=== PATIENT | female | born 1965 | race Caucasian/White ===

== ENCOUNTER 2019-11-26 08:17 | Outpatient (CLI) | payer OTHER, SELFPAY ==
--- NOTE | ~2019-11-26 | MM_ITS ---
EXAMINATION: MM screening wolf BI w bernardino HISTORY: Screening mammogram TECHNIQUE: Craniocaudal and mediolateral oblique 3-D tomosynthesis images were obtained and synthetic 2-D images were generated. CAD analysis was submitted and interpreted. COMPARISON: 11/22/2016, 08/14/2015, 08/08/2014 bilateral digital screening mammogram examinations BREAST PARENCHYMAL COMPOSITION: There are scattered areas of fibroglandular density.. FINDINGS: There is no evidence of suspicious mass, calcification, or architectural distortion to sugg est malignancy in either breast. There has been no suspicious interval change. IMPRESSION: 1. No mammographic evidence of malignancy. 2. Recommend routine screening mammography in one year. BI-RADS Category 1: Negative Reviewed, dictated and finalized at location A.
--- NOTE | ~2019-11-26 | US_ITS ---
EXAMINATION: US pelvic complete w TV DATE: 11/26/2019 08:54 INDICATION: Postmenopausal bleeding TECHNIQUE: Multiple transabdominal and endovaginal sonographic images of the pelvis were obtained. COMPARISON: None. FINDINGS: The uterus measures 10.7 x 5.2 x 6.5 cm. The endometrial complex measures 25 mm and is hete rogeneous in appearance. The ovaries are not visualized however no adnexal abnormality is seen. A nab othian cyst is noted in the cervix. There is no free fluid in the pelvis. IMPRESSION: 1. Endometrial thickening which may be due to hyperplasia, polyp, or malignancy. Endometrial sampling is recommended. Reviewed, dictated and finalized at location A. IMPRESSION: 1. Endometrial thickening which may be due to hyperplasia, polyp, or malignancy . Endometrial sampling is recommended.
== END 2019-11-26 08:18 | disposition home or self-care (01) ==
LOC: CHSIMG 08:19
PROVIDERS: PCP Internal Medicine; Visit Provider Internal Medicine
DX: Z12.31 Encounter for screening mammogram for malignant neoplasm of breast (principal); N93.8 Other specified abnormal uterine and vaginal bleeding
CPT/HCPCS: 76830; 76856; 77063; 77067

== ENCOUNTER 2019-11-26 22:12 | Emergency (ER) | payer OTHER, SELFPAY ==
[2019-11-26 22:49] VITALS: BP 154/85; PULSE 56; RESP 20; TEMP 36.6; O2SAT 96
--- NOTE | 2019-11-26 22:57 | ED.ALLEREA ---
HPI - Allergic Reaction General Chief complaint: Dental/Oral Stated complaint: 53YO female w/ swelling in lower lip after she ate at [employer] earlier today. Admits it was something she ate after which the swelling started. Related Data Home Medications Medication Instructions Recorded Confirmed duloxetine 20 mg PO DAILY 11/26/19 11/26/19 levothyroxine 125 mcg PO DAILY 11/26/19 11/26/19 Allergies Allergy/AdvReac Type Severity Reaction Status Date / Time Sulfa (Sulfonamide Allergy Unknown Unknown Verified 11/26/19 23:03 Antibiotics) Review of Systems Review of Systems: All systems reviewed & are unremarkable except as noted in HPI and below Constitutional: Constitutional: Reports as per HPI, Reports no additional constitutional complaints, Denies chills, Denies fever(s) and Denies weakness ENT: Reports system reviewed and no additional complaints, except as documented Cardiovascular: Cardiovascular: Reports as per HPI and Reports no additional cardiovascular complaints Respiratory: Respiratory: Reports as per HPI and Reports no additional respiratory complaints Gastrointestinal: Gastrointestinal: Reports as per HPI and Reports no additional gastrointestinal complaints Genitourinary: Genitourinary: Reports no additional female genitourinary complaints and Reports as per HPI Musculoskeletal: Musculoskeletal: Reports no additional musculoskeletal complaints and Reports as per HPI Integumentary/Breasts: Skin/Breast: Reports system reviewed and no additional complaints, except as docu and Reports as per HPI Comments: Lower lip swelling on left lateral aspect Neurologic: Reports system reviewed and no additional complaints, except as documented, Denies confusion, Denies dizziness, Denies headache(s), Denies focal weakness and Denies weakness Psychiatric: Psychiatric: Reports no additional psychiatric complaints Endocrine: Endocrine: Reports no additional endocrine complaints Hematologic/Lymphatic: Hematologic/Lymphatic: Reports no additional hematologic/lymphatic complaints Allergic/Immunologic: Allergic/Immunologic: Reports lip swelling, Denies throat swelling, Denies tongue swelling and Denies wheezing [facility] Past Medical History Medical History (Updated 11/26/19 @ 23:07 by Ousmane Rice MD) Depression Hypothyroidism Exam Const: General: healthy appearing, no acute distress and alert Orientation/consciousness: patient oriented x3 and No confusion Limitations: No altered mental status HENMT: General nose exam: Normal external nose present and Normal nares present Face and sinus: sinuses nontender Mouth: No lip normal and Yes moist mucous membranes Other: Lower lip swelling over left lateral aspect Eyes: Pupils: Equal, round and reactive pupils present Neck: Neck: normal visual inspection Chest: Chest palpation & inspection: normal inspection of the chest Resp: Effort & Inspection: normal respiratory effort Auscultation: clear to auscultation bilaterally Cardio: Rate: regular rate Rhythm: regular rhythm GI: Inspection: non-distended GI Palp: Yes Soft to palpation and No Tenderness to palpation present (GI) : General: Yes no CVA tenderness Skin: General skin exam: normal color Neuro: General: patient oriented x3, moves all extremities, no focal motor deficits and CN's II-XI intact bilaterally Extrem: General: normal to inspection Psych: Affect: normal affect Course Course Emergency Course: Food allergy. Prednisone PO in ED. D/C home w/ prednisone x 3 days Vital Signs Vital signs: Vital Signs Temperature 97.8 F 11/26/19 22:49 Pulse Rate 56 L 11/26/19 22:49 Respiratory Rate 11/26/19 22:49 Blood Pressure 154/85 H 11/26/19 22:49 Pulse Oximetry 96 11/26/19 22:49 Temperature 97.8 F 11/26/19 22:49 Pulse Rate 56 L 11/26/19 22:49 Respiratory Rate 11/26/19 22:49 Blood Pressure 154/85 H 11/26/19 22:49 Pulse Oximetry 96 11/26/19 22:49
[2019-11-26] MEDS: predniSONE 20 MG TABLET 80 MG PO (23:05)
[2019-11-26 23:09] VITALS: BP 145/78; PULSE 70; RESP 18; TEMP 36.6; O2SAT 100
[2019-11-26 23:50] VITALS: BP 144/85; PULSE 71; RESP 18; TEMP 36.6; O2SAT 98
== END 2019-11-26 23:54 | disposition home or self-care (01) ==
PROVIDERS: Emergency Provider Family Medicine; PCP Internal Medicine
DX: T78.40XA Allergy, unspecified, initial encounter (principal)
CPT/HCPCS: 99282; 99283; J7512

== ENCOUNTER 2020-10-03 16:43 | Outpatient (CLI) | payer OTHER, SELFPAY ==
--- NOTE | ~2020-10-03 | XR_ITS ---
EXAMINATION: XR chest 2V DATE: 10/03/2020 17:05 INDICATION: Weight gain. Chronic obstructive pulmonary disease. TECHNIQUE: Frontal and lateral views of the chest were obtained. COMPARISON: Chest 2 views 08/29/2012 FINDINGS: The chest demonstrates clear lungs without pneumonia, pleural effusion, or pneumothorax. Th e heart size is normal. There is mild chronic anterior wedging of T12. IMPRESSION: 1. No acute cardiopulmonary disease. Reviewed, dictated and finalized at location A.
--- NOTE | ~2020-10-03 | XR_ITS ---
EXAMINATION: XR lumbar spine 2-3V DATE: 10/03/2020 17:05 INDICATION: Low back pain. TECHNIQUE: 3 views of lumbar spine were obtained. COMPARISON: Lumbar spine radiograph 11/22/2016 FINDINGS: There is 8 degrees dextrocurvature of lumbar spine. There is mild chronic anterior wedging of T12 vertebral body. There is mildly decreased disc height at L4-L5. There are endplate osteophytes at most levels. There is severe facet joint osteoarthritis in lower lumbar spine. IMPRESSION: 1. Mild lumbar spondylosis, stable from 11/22/2016. Reviewed, dictated and finalized at location A.
== END 2020-10-03 16:44 | disposition home or self-care (01) ==
PROVIDERS: PCP Internal Medicine; Visit Provider Internal Medicine
DX: N95.0 Postmenopausal bleeding (principal); E03.9 Hypothyroidism, unspecified; R63.5 Abnormal weight gain
CPT/HCPCS: 71046; 72100

== ENCOUNTER 2020-10-05 10:13 | Outpatient (CLI) | payer OTHER, SELFPAY ==
--- NOTE | ~2020-10-05 | US_ITS ---
EXAMINATION: US pelvic complete DATE: 10/05/2020 10:31 INDICATION: Postmenopausal bleeding TECHNIQUE: Multiple transabdominal and endovaginal sonographic images of the pelvis were obtained. COMPARISON: 11/26/2019 FINDINGS: The uterus measures 11.6 x 6.0 x 6.1 cm. The endometrial complex measures 3.2 cm. The ovari es are not visualized however no adnexal abnormality is seen. There is no free fluid in the pelvis. IMPRESSION: 1. Endometrial thickening which may be due to hyperplasia, polyp, or malignancy. Endometrial sampling is recommended. Reviewed, dictated and finalized at location B. IMPRESSION: 1. Endometrial thickening which may be due to hyperplasia, polyp, or malignancy . Endometrial sampling is recommended.
== END 2020-10-05 10:14 | disposition home or self-care (01) ==
LOC: CHSIMG 10:15
PROVIDERS: PCP Internal Medicine; Visit Provider Internal Medicine
DX: N95.0 Postmenopausal bleeding (principal)
CPT/HCPCS: 76856

== ENCOUNTER 2021-05-22 11:51 | Outpatient (CLI) | payer OTHER, SELFPAY ==
--- NOTE | ~2021-05-22 | MM_ITS ---
EXAMINATION: MM screening wolf BI w bernardino HISTORY: Screening TECHNIQUE: Craniocaudal and mediolateral oblique 3-D tomosynthesis images were obtained and synthetic 2-D images were generated. CAD analysis was submitted and interpreted. COMPARISON: Comparison to multiple prior studies sequentially, with oldest reviewed study dated 07/30. BREAST PARENCHYMAL COMPOSITION: There are scattered areas of fibroglandular density. FINDINGS: There is no evidence of suspicious mass, calcification, or architectural distortion to sugg est malignancy in either breast. There has been no suspicious interval change. IMPRESSION: 1. No mammographic evidence of malignancy. 2. Recommend routine screening mammography in one year. BI-RADS Category 1: Negative Reviewed, dictated and finalized at location A. UITRY NEGATIVE INSPECTOR
--- NOTE | ~2021-05-22 | XR_ITS ---
EXAMINATION: XR lumbar spine 2-3V DATE: 05/22/2021 12:42 INDICATION: Generalized back pain radiating to the hips TECHNIQUE: Anteroposterior and lateral views of the lumbar spine, and cone-down lateral view of the l umbosacral junction were obtained. COMPARISON: 10/03/2020 FINDINGS: 5 degrees lumbar dextrocurvature. 4 mm anterolisthesis L4 on L5. Lumbar vertebral body heights are no rmal. Mild disc height loss at L4-L5 and at L1-L2 and multiple levels in the visualized lower thoraci c spine. Bilateral severe lower lumbar facet osteoarthritis. Atherosclerotic aorta. IMPRESSION: 1. Increased now 4 mm anterolisthesis L4 on L5, otherwise unchanged. Otherwise unchanged mild lumbar spondylosis. Reviewed, dictated and finalized at location A. OR REPORT DEVELOPER
[2021-05-22 12:10] LABS: Basophils Absolute Auto 0.06 K/mm3 (0.00-0.10); Eosinophils Absolute Auto 0.16 K/mm3 (0.02-0.50); Eosinophils Percent Auto 2.6 % (1.0-6.0); Hematocrit 40.4 % (35.0-49.0); Hemoglobin 12.7 g/dL (12.0-15.0); Immature Granulocyte Absolute 0.04 K/mm3 (0.00-0.00); Immature Granulocyte Percent A 0.6 % (0.0-0.0); Lymphocytes Absolute Auto 1.39 K/mm3 (1.10-4.50); Lymphocytes Percent Auto 22.3 % (18.0-42.0); Mean Corpuscular HGB Conc 31.4 g/dL (32.0-36.0); Mean Corpuscular Hemoglobin 32.6 pg (27.0-31.0); Mean Corpuscular Volume 103.6 fL (78.0-102.0); Mean Platelet Volume 9.3 fl (9.2-11.8); Monocytes Absolute Auto 0.36 K/mm3 (0.10-0.90); Monocytes Percent Auto 5.8 % (2.0-11.0); Neutrophils Absolute Auto 4.2 K/mm3 (1.7-7.2); Neutrophils Percent Auto 67.7 % (50.0-70.0); Platelet Count Result 250 K/mm3 (150-420); White Blood Count 6.2 K/mm3 (4.8-10.8)
[2021-05-22 12:11] LABS: Add Urine Microscopic? YES; Appearance Urine Clear (Clear); Bilirubin Urine Negative (Negative); Blood Urine 1+ (Negative); Color Urine Light Yellow (Yellow); Glucose Urine UA Negative (Negative); Ketones Urine Negative (Negative); Leukocyte Esterase Ur 1+ (Negative); Nitrate Urine Positive (Negative); Protein Urine Negative (Negative); Specific Grav Ur 1.025 (1.010-1.020); Urobilinogen Urine 0.2 mg/dL (0.2-1.0)
[2021-05-22 12:15] LABS: Squamous Epithelial Cell Urine Few /hpf (Few)
[2021-05-22 12:16] LABS: Bacteria Urine 4+ /hpf
[2021-05-22 13:03] LABS: Alanine Aminotransferase 28 U/L (14-59); Albumin Level 4.1 g/dL (3.4-5.0); Alkaline Phosphatase 91 U/L (46-116); Anion Gap 8 mmol/L (8-16); Aspartate Amino Transferase 20 U/L (15-37); Bilirubin,Total 0.5 mg/dL (0.00-1.00); Blood Urea Nitrogen 16 mg/dL (7-18); CRP 1.3 mg/dL (0.0-0.9); Calcium 8.5 mg/dL (8.5-10.1); Carbon Dioxide 34 mmol/L (21-32); Chloride 101 mmol/L (98-108); Creatine Kinase 300 U/L (26-192); Estimated Glomerular Filt Rate 49; Glucose 97 mg/dL (70-99); NT Pro B Type Natriuretic Pept 41 pg/mL (0-125); Osmolality Calculated 297 mOsm/kg (285-295); Potassium 4.1 mmol/L (3.5-5.1); Sodium 143 mmol/L (136-145); Thyroid Stimulating Hormone 93.49 uIU/mL (0.36-3.74); Total Protein 8.1 g/dL (6.4-8.2)
[2021-05-26 07:32] LABS: Aldolase 4.9 U/L (<=8.1)
== END 2021-05-22 11:52 | disposition home or self-care (01) ==
PROVIDERS: PCP Internal Medicine; Visit Provider Internal Medicine
DX: R53.1 Weakness (principal); R60.9 Edema, unspecified; E03.9 Hypothyroidism, unspecified; M54.9 Dorsalgia, unspecified; Z12.31 Encounter for screening mammogram for malignant neoplasm of breast
CPT/HCPCS: 36415; 72100; 77063; 77067; 80053; 81001; 82085; 82550; 83880; 84443; 85025; 86140

== ENCOUNTER 2021-05-28 14:31 | Outpatient (RCR) | payer OTHER, SELFPAY ==
--- NOTE | 2021-05-28 15:49 | PTOPEVAL ---
Thank you for referring Gentry Asencio to [facility].? The patient is scheduled to be seen for therapy? ____x/week for ___ weeks. Please review, sign, date and return this plan of care YENNY. I agree with and certify that the following plan of care is medically necessary. Referring Physician Date Admitting Provider: Attending Provider: Ortega Reeves MD Referring Provider: *PT Outpatient Evaluation Start: 05/28/21 14:31 Freq: Status: Active Protocol: Document 05/28/21 14:33 ACR (Rec: 05/28/21 15:44 ACR [id number]) Therapy Assessment Status Assessment Status Assessment Status Evaluation Outpatient Past Medical History Musculoskeletal History Hx Fibromyalgia Yes Endocrine History Hx Hypothyroidism Yes Reproductive History Hx Post Menopausal Yes Other History Hx Other Surgeries Yes: vaginal lesion removal Evaluation Information Problem Diagnosis low back pain Onset 05/23/21 Subjective Information Patient states that she went Query Text:As Reported By Patient/ to her MD recently and was Family told she has a lot of arthritis. She states that she also has a hernia that she was recently diagnosed with. Patient states that she has difficulty with walking for a period of time (more than a few blocks), standing for a period of time, getting up out of bed. Patient states that the pain is worst in the morning. She states that leaning forward makes her back feel better. She states that believes the hernia is putting a lot of excess weight on the back. Patient states that her goal for therapy is to decrease pain in the lower back. Pain Assessment Timing of Pain Assessment Timing of Pain Assessment Assessment Pain Scale Pain Scale Used Numeric (1 - 10) Self Report Pain Assessment Lower Back Reported Pain Level 3 Greatest Pain Intensity 10 Pain Score Pain Score 3: Self Report Interventions Used Interventions Used By Clinicians Activity or ADL's,Electrical Stimulation,Exercise,Heat Cervical and Lumbar ROM Lumbar ROM Lumbar Flexion Active [place] Query Text:Hands to: Lumb
--- NOTE | 2021-09-10 14:49 | PCPTNOTE ---
Mrs. Asencio attended a total of 11 treatment sessions from 05/28/21 to 06/28/21. She has failed to return to the clinic or contact the clinic. She will be discharged from our care at this time.
== END 2021-06-28 23:59 | disposition home or self-care (01) ==
LOC: CHSPT 14:31
PROVIDERS: PCP Internal Medicine; Visit Provider Internal Medicine
DX: M54.9 Dorsalgia, unspecified (principal)
CPT/HCPCS: 97014; 97110; 97161; G0283

== ENCOUNTER 2022-05-12 00:44 | Emergency (ER) | payer OTHER, SELFPAY ==
[2022-05-12 00:45] VITALS: BP 143/88; PULSE 85; RESP 18; TEMP 37; O2SAT 99
--- NOTE | 2022-05-12 00:46 | ED.FEMALEGU ---
HPI - Female Genitourinary General Chief complaint: Urogenital-Female Stated complaint: Urogenital Time Seen by Provider: 05/12/22 00:46 Source: patient Mode of arrival: ambulatory Limitations: no limitations History of Present Illness HPI Narrative: 56-year-old female with a history of obesity, depression, endometrial cancer status post hysterectomy last year, hypothyroidism, fecal incontinence presents with a 1 month history of -- Erythema with burning and itching of the vulva/ Vagina -- Dysuria without any hematuria. no fever or chills. Patient is menopausal and has not been sexually active for many years. MD elicited complaint: UTI Pertinent past history: urinary incontinence Onset (ago): month(s) ( Symptoms started 1 month ago.) Location of symptoms: external genitalia, perineum and vaginal Severity: mild Female Urogenital Radiation: Non-Radiating Vaginal discharge: none Vaginal bleeding: none Urinary symptoms: Dysuria Exacerbating factors: none Relieving factors: none Associated symptoms: denies other symptoms Treatment prior to arrival: none Patient : No Related Data : 8 Para: 5 Home Medications Medication Instructions Recorded Confirmed duloxetine 20 mg capsule,delayed 20 mg PO DAILY 11/26/19 05/12/22 release levothyroxine 125 mcg tablet 125 mcg PO DAILY 11/26/19 05/12/22 Allergies Allergy/AdvReac Type Severity Reaction Status Date / Time Sulfa (Sulfonamide Allergy Unknown Unknown Verified 10/13/20 12:45 Antibiotics) Review of Systems Review of Systems: All systems reviewed & are unremarkable except as noted in HPI and below Constitutional: Constitutional: Reports as per HPI and Reports no additional constitutional complaints Eyes: Eyes: Reports as per HPI and Reports no additional eye complaints ENT: Reports system reviewed and no additional complaints, except as documented and Reports as per HPI Cardiovascular: Cardiovascular: Reports as per HPI and Reports no additional cardiovascular complaints Respiratory: Respiratory: Reports as per HPI and Reports no additional respiratory complaints Gastrointestinal: Gastrointestinal: Reports as per HPI and Reports no additional gastrointestinal complaints Genitourinary: Genitourinary: Reports no additional female genitourinary complaints, Reports as per HPI, Reports dysuria and Reports urinary incontinence Musculoskeletal: Musculoskeletal: Reports no additional musculoskeletal complaints and Reports as per HPI Integumentary/Breasts: Skin/Breast: Reports system reviewed and no additional complaints, except as docu and Reports as per HPI Neurologic: Reports system reviewed and no additional complaints, except as documented and Reports as per HPI Psychiatric: Psychiatric: Reports no additional psychiatric complaints and Reports as per HPI Endocrine: Endocrine: Reports no additional endocrine complaints and Reports as per HPI Hematologic/Lymphatic: Hematologic/Lymphatic: Reports no additional hematologic/lymphatic complaints and Reports as per HPI Allergic/Immunologic: Allergic/Immunologic: Reports no additional allergic/immunologic complaints and Reports as per HPI PMFSH Past Medical History Medical History Depression Endometrial cancer 10/06/20 Hypothyroidism Surgical History Surgical History Hx of vaginal surgery Family History Family History Mother Dementia Father COPD (chronic obstructive pulmonary disease) Social History Social History Smoking status: Former smoker Alcohol intake: never Substance use: never Exam Const: Nutritional Appearance: obese Orientation/consciousness: patient oriented x3 Limitations: no limitations HENMT: Head: normal to inspection Ears: seasoner
--- NOTE | 2022-05-12 01:05 | PC.NURSE ---
patient return from bathroom states I spilled my urine so I don't have a sample for you
[2022-05-12 01:45] LABS: Wet Prep Fungus (KOH) Source Vaginal (Negative)
[2022-05-12 01:46] LABS: KOH Fungus None Seen (None Seen)
[2022-05-12 02:02] LABS: Add Urine Microscopic? YES; Bilirubin Urine Negative (Negative); Blood Urine 1+ (Negative); Color Urine Light Yellow (Yellow); Glucose Urine UA Negative (Negative); Ketones Urine Negative (Negative); Leukocyte Esterase Ur 1+ LEU/UL (Negative); Nitrate Urine Positive (Negative); Protein Urine Negative (Negative); Specific Grav Ur >= 1.030 (1.010-1.020); Urobilinogen Urine 0.2 mg/dL (0.2-1.0); pH Urine 5.5 (5.0-8.0)
[2022-05-12 02:14] LABS: Appearance Urine Cloudy (Clear); Bacteria Urine 4+ /hpf; Squamous Epithelial Cell Urine Many /hpf (Few)
[2022-05-12 02:27] VITALS: BP 138/89; PULSE 90; RESP 20; TEMP 36.6; O2SAT 96
--- NOTE | 2022-05-12 02:31 | PC.NURSE ---
DURING DISCHARGE AND REVIEW THE NEED TO GET MEDICINE IN AM AND START,PT SAID OH I DON'T KNOW IT MAY BE FRIDAY BEFORE I GET IT. EXPLAIN NEED TO FOLLOW UP WITH FUDGER SHE SAID I DON'T HAVE TIME IF IT CONTINUES I WILL JUST COME BACK TO ER
--- NOTE | 2022-05-14 12:52 | PC.NURSE ---
FINAL URINE CULTURE RESULTS: GREATER THAN 100,000CFU/ML OF E COLI. PT WAS PLACED ON CIPROFLOXACIN, WHICH IS SUSCEPTIBLE PER C&S. NO FURTHER ACTION NEEDED PER DR HENAO.
== END 2022-05-12 02:33 | disposition home or self-care (01) ==
PROVIDERS: Emergency Provider Internal Medicine Critical Care Medicine; PCP Internal Medicine
DX: B37.31 Acute candidiasis of vulva and vagina (principal); N39.0 Urinary tract infection, site not specified; E03.9 Hypothyroidism, unspecified; F32.A Depression, unspecified; Z87.891 Personal history of nicotine dependence
CPT/HCPCS: 81001; 87077; 87086; 87088; 87186; 87210; 99283

== ENCOUNTER 2023-04-11 22:21 | Emergency (ER) | payer OTHER, SELFPAY ==
--- NOTE | ~2023-04-11 | XR_ITS ---
EXAMINATION: XR ankle LT min 3V DATE: 04/11/2023 22:31 INDICATION: Left ankle injury and pain. TECHNIQUE: 3 views of left ankle were obtained. COMPARISON: None. FINDINGS: There is an oblique fracture of distal fibula with medial aspect of the fracture line 13 mm proximal to the level of the tibial plafond. The distal fracture fragment demonstrates 2 mm posterol ateral displacement. There is mild widening of the medial ankle mortise. There is ankle soft tissue s welling. IMPRESSION: 1. Oblique fracture of distal fibula. 2. Mild widening of the medial ankle mortise suspicious for deltoid ligament sprain. Reviewed, dictated and finalized at location E. ER CLERK IMPRESSION: 1. Oblique fracture of distal fibula. 2. Mild widening of the medial ankle mortise suspicious for deltoid ligament sp rain.
--- NOTE | ~2023-04-11 | XR_ITS ---
EXAMINATION: XR ankle LT 2V DATE: 04/11/2023 23:10 INDICATION: Distal left fibular fracture status post reduction. TECHNIQUE: 2 views of left ankle were obtained. COMPARISON: Left ankle radiographs at 10:31 PM FINDINGS: There is an oblique fracture of distal fibula. The distal fracture fragment demonstrates 1 mm posterolateral displacement. Joint spaces are normal. There is ankle soft tissue swelling. IMPRESSION: 1. Oblique fracture of distal fibula. Reviewed, dictated and finalized at location E. RT/EXPORT AGENT
[2023-04-11 22:21] VITALS: BP 177/91; PULSE 95; RESP 20; TEMP 36.2; O2SAT 96
--- NOTE | 2023-04-11 22:30 | ED.LOWEXIN ---
HPI - Extremity Injury (Lower) General Chief Complaint: Extremity Injury, Lower Stated Complaint: lower extremity injury Time Seen by Provider: 04/11/23 22:22 Source: patient Mode of arrival: ambulatory Limitations: no limitations History of Present Illness HPI Narrative: patient is a 57-year-old female with a fall at the local [employer] and slipped on her left ankle. She has pain in the left ankle. More so on the outer side. No other injuries. No head or neck injuries. complaint: ankle injury ( Left) Onset (ago): minute(s) (30) Injury: Left: ankle ( left) Type of Injury: eversion Place: street/outdoors Severity: moderate Severity scale (1-10): 5 Relieving factors: immobilization Exacerbating factors: movement Context: fall, direct blow and walking Associated symptoms: swelling, tingling, able to partially bear weight and ambulatory Other symptoms: none Related Data Home Medications Medication Instructions Recorded Confirmed duloxetine 20 mg capsule,delayed 20 mg PO DAILY 11/26/19 04/11/23 release (Cymbalta) levothyroxine 125 mcg tablet 125 mcg PO DAILY 11/26/19 04/11/23 (Synthroid) Allergies Allergy/AdvReac Type Severity Reaction Status Date / Time Sulfa (Sulfonamide Allergy Unknown Rash Verified 04/11/23 22:27 Antibiotics) Review of Systems Review of Systems: All systems reviewed & are unremarkable except as noted in HPI and below Constitutional: Constitutional: Reports no additional constitutional complaints Eyes: Eyes: Reports no additional eye complaints ENT: Reports system reviewed and no additional complaints, except as documented Cardiovascular: Cardiovascular: Reports no additional cardiovascular complaints Respiratory: Respiratory: Reports no additional respiratory complaints Gastrointestinal: Gastrointestinal: Reports no additional gastrointestinal complaints Genitourinary: Genitourinary: Reports no additional female genitourinary complaints Musculoskeletal: Musculoskeletal: Reports no additional musculoskeletal complaints Integumentary/Breasts: Skin/Breast: Reports system reviewed and no additional complaints, except as docu Neurologic: Reports system reviewed and no additional complaints, except as documented Psychiatric: Psychiatric: Reports no additional psychiatric complaints Endocrine: Endocrine: Reports no additional endocrine complaints Hematologic/Lymphatic: Hematologic/Lymphatic: Reports no additional hematologic/lymphatic complaints Allergic/Immunologic: Allergic/Immunologic: Reports no additional allergic/immunologic complaints PMFSH Past Medical History Medical History Depression Endometrial cancer 10/06/20 Hypothyroidism Surgical History Surgical History Hx of vaginal surgery Family History Family History Mother Dementia Father COPD (chronic obstructive pulmonary disease) Social History Social History Smoking status: Former smoker Alcohol intake: never Substance use: never Exam Const: General: healthy appearing Nutritional Appearance: well nourished Orientation/consciousness: patient oriented x3 HENMT: Head: normal to inspection Ears: external ears normal Face/Nose/Sinus: Normal external nose present Eyes: Conjunctivae: conjunctivae normal Pupils: Equal, round and reactive pupils present EOM: EOMs intact bilaterally Neck: Neck: normal visual inspection Chest: Chest palpation & inspection: normal inspection of the chest Resp: Effort & Inspection: normal respiratory effort and not labored Auscultation: clear to auscultation bilaterally and no crackles Cardio: Rate: regular rate Rhythm: regular rhythm Heart sounds: no murmurs GI: Inspection: non-distended GI Palp: Yes Soft to palpation, No Te
[2023-04-11] MEDS: KETOROLAC (*BKC) 60 MG/2 ML VIAL IM (23:15)
[2023-04-11 23:22] VITALS: BP 176/90
== END 2023-04-11 23:50 | disposition home or self-care (01) ==
PROVIDERS: Emergency Provider Emergency Medicine; PCP Internal Medicine
DX: S82.432A Displaced oblique fracture of shaft of left fibula, initial encounter for closed fracture (principal); S93.402A Sprain of unspecified ligament of left ankle, initial encounter; E03.9 Hypothyroidism, unspecified; Z87.891 Personal history of nicotine dependence; Z79.899 Other long term (current) drug therapy; W01.0XXA Fall on same level from slipping, tripping and stumbling without subsequent striking against object, initial encounter
CPT/HCPCS: 29515; 73600; 73610; 96372; 99284; J1885

== ENCOUNTER 2023-05-05 09:23 | Outpatient (CLI) | payer OTHER, SELFPAY ==
--- NOTE | ~2023-05-05 | XR_ITS ---
Left ankle Technique: AP, oblique, and lateral views were obtained. Clinical History: Pain Findings: There is an acute, oblique, minimally fracture the distal fibular shaft. No other fracture or dislocation seen. Ankle mortise and other visualized joint spaces are preserved. Soft tissues are otherwise unremarkable. Impression: Acute, oblique, minimally displaced fracture the distal fibular shaft. Reviewed, dictated and finalized at location . MIZATION ANALYST Impression: Acute, oblique, minimally displaced fracture the distal fibular shaft.
== END 2023-05-05 09:24 | disposition home or self-care (01) ==
PROVIDERS: PCP Internal Medicine; Visit Provider Orthopaedic Surgery
DX: S82.432A Displaced oblique fracture of shaft of left fibula, initial encounter for closed fracture (principal); M25.572 Pain in left ankle and joints of left foot
CPT/HCPCS: 73610

== ENCOUNTER 2023-06-02 08:44 | Outpatient (CLI) | payer OTHER, SELFPAY ==
--- NOTE | ~2023-06-02 | XR_ITS ---
Left ankle Technique: AP, oblique, and lateral views were obtained. Clinical History: Fracture follow-up COMPARISON: 05/05/2023 Findings: Routine partial interval healing of oblique fracture the distal fibula present, with some c allus formation present. Fracture line still visible as a discrete lucency. Alignment is unchanged.. Ankle mortise and other visualized joint spaces are preserved. Soft tissues are otherwise unremarkab le. Impression: Routine interval partial healing of oblique fracture of the distal fibula. Reviewed, dictated and finalized at location M. RITY SYSTEM ENGINEER Impression: Routine interval partial healing of oblique fracture of the distal fibula.
== END 2023-06-02 08:45 | disposition home or self-care (01) ==
LOC: CHSIMG 08:46
PROVIDERS: PCP Internal Medicine; Visit Provider Orthopaedic Surgery
DX: M25.572 Pain in left ankle and joints of left foot (principal); S82.832A Other fracture of upper and lower end of left fibula, initial encounter for closed fracture
CPT/HCPCS: 73610

== ENCOUNTER 2023-09-15 13:45 | Outpatient (CLI) | payer OTHER, SELFPAY ==
--- NOTE | ~2023-09-15 | MM_ITS ---
EXAMINATION: MM screening wolf BI w bernardino HISTORY: Screening TECHNIQUE: Craniocaudal and mediolateral oblique 3-D tomosynthesis images were obtained and synthetic 2-D images were generated. CAD analysis was submitted and interpreted. COMPARISON: Comparison to multiple prior studies sequentially, with oldest reviewed study dated 07/2014. BREAST PARENCHYMAL COMPOSITION: Not dense: There are scattered areas of fibroglandular density. FINDINGS: There is no evidence of suspicious mass, calcification, or architectural distortion to sugg est malignancy in either breast. There has been no suspicious interval change. IMPRESSION: 1. No mammographic evidence of malignancy. 2. Recommend routine screening mammography in one year. BI-RADS Category 1: Negative Reviewed, dictated and finalized at location B.
--- NOTE | ~2023-09-15 | DEXA_ITS ---
? Bone Density Report? Name:? CHERYL COMER Patient ID:??? [id number] Age:? 57 Sex:? Female Ethnicity:? White Date of : 1965 Indication: postmenopausal; screening for osteoporosis; height loss; prior fracture; cancer; hysterectomy; Referring Provider: Ortega Reeves Study: Bone densitometry was performed. Exam Date: September 15, 2023 Accession number: [id number] Bone Density: Region? BMD??? T-score? Z-score?? Classification AP Spine(L1-L4)? 0.858?? -1.7? -0.3? Osteopenia Femoral Neck (Left)? 0.773?? -0.7? 0.6? Normal Total Hip (Left)? 0.905? ?-0.3? 0.6? Normal Femoral Neck (Right)? 0.817?? -0.3? 1.0? Normal Total Hip (Right)? 0.940??? 0.0? 0.9? Normal Femoral Neck Mean? 0.795?? -0.5? 0.8? Normal Total Hip Mean? 0.923?? -0.2? 0.8?Normal World Health Organization criteria for BMD impression classify patients as: Normal (T-score at or above -1.0), Osteopenia (T-score between -1.0 and -2.5), or Osteoporosis (T-score at or below -2.5). 10-year Fracture Risk(1): Major Osteoporotic Fracture? 9.4% Hip Fracture? 0.3% Reported Risk Factors: [place] (), Neck BMD=0.773, BMI=50.5, previous fracture (1) FRAX? Version 3.08. Fracture probability calculated for an untreated patient. Fracture probability may be lower if the patient has received treatment. Clinical Information Provided by Patient: Has had a low trauma fracture Has the following medical conditions: Cancer, Hysterectomy Patient maximum height was 62 Menopause Age: 48 No regular weight bearing exercise Drinks caffeinated beverages Onset of menses at age 10 Number of children 5 Impression: The patient has low bone mass, based on the Total Spine T-score. The patient has risk factors, including: previous fracture. Discussion: BONE DENSITY IS LOW AT ONE OR MORE SKELETAL SITES. This patient's lowest T-score is low at one or more skeletal sites.? It meets the World Health Organization's (WHO) criteria for ?low bone mass?? (T-score between -1.0 and -2.5).? The patient's 10-year risk of fracture as calculated by FRAX is less than the threshold where pharmacological therapy is recommended by the National Osteoporosis Foundation (NOF).? However, all treatment decisions require clinical judgment and consideration of individual patient factors, including patient preferences, comorbidities, previous drug use, risk factors not captured in the FRAX model (e.g., frailty, falls, vitamin D deficiency, increased bone turnover, interval significant decline in bone density) and possible under or overestimation of fracture risk by FRAX. The patient should follow a healthfu
== END 2023-09-15 13:46 | disposition home or self-care (01) ==
LOC: CHSIMG 13:48
PROVIDERS: PCP Internal Medicine; Visit Provider Internal Medicine
DX: Z12.31 Encounter for screening mammogram for malignant neoplasm of breast (principal); Z78.0 Asymptomatic menopausal state; M85.88 Other specified disorders of bone density and structure, other site
CPT/HCPCS: 77063; 77067; 77080

== ENCOUNTER 2023-09-23 09:47 | Outpatient (CLI) | payer OTHER, SELFPAY ==
--- NOTE | ~2023-09-23 | CT_ITS ---
CT abdomen pelvis w con Ordering provider: Ortega Reeves MD History: 57 years Female with . overactive bladder, RT flank pain, abdominal swelling . Comparison: August 02, 2014 Technique: CT abdomen and pelvis with IV and without oral contrast. Radiation reduction technique uti lized. The DLP is 1320.74 mGy. Findings: VISUALIZED LOWER CHEST: Tiny nodule in the right middle lobe measuring 4 mm. Blood is slightly change d from previous examination. 1 year follow-up advised. UPPER ABDOMINAL ORGANS: Liver: Fat infiltration. Hepatomegaly. Hypodensity in segment #7 measuring 1.1 cm which is a cyst unc hanged from previous examination. Gallbladder: Normal. Spleen: Normal. Stomach/duodenum: Normal. Pancreas: Normal. Adrenals: Normal. Kidneys: Tiny stone in the right kidney lower pole. PELVIC ORGANS: The bladder is normal. BOWEL AND MESENTERY: Colon: No evidence of the diverticulitis. Normal appendix. Small Bowel: Normal. No obstruction. Peritoneum/mesentery: No free air or free fluid. No mesenteric lymphadenopathy. RETROPERITONEUM: Mild atheromatous disease of the abdominal aorta. No retroperitoneal lymphadenopat hy. MUSCULOSKELETAL: Superficial soft tissues: Soft tissue mass is seen in the anterior abdominal wall which measures 5.1 x 8.1 x 6 cm. Edema in the subcutaneous tissues posteriorly in the back. Otherwise, The superficial s oft tissues are normal. Bones: Age appropriate degenerative changes of the spine. Pubic symphysitis. IMPRESSION: 1. Anterior abdominal wall lesion in the right side. The differential includes hematoma and a mass. Further evaluation advised. 2. Fat infiltration of the liver. Hepatomegaly. Cyst unchanged from previous examination the right lobe of the liver. 3. Tiny stone in the right kidney lower pole. Reviewed, dictated and finalized at location A.
[2023-09-23 10:12] LABS: Estimated Glomerular Filt Rate > 60
== END 2023-09-23 09:48 | disposition home or self-care (01) ==
LOC: CHSIMG 09:50
PROVIDERS: PCP Internal Medicine; Visit Provider Internal Medicine
DX: R19.03 Right lower quadrant abdominal swelling, mass and lump (principal); K76.0 Fatty (change of) liver, not elsewhere classified; R16.0 Hepatomegaly, not elsewhere classified; N20.0 Calculus of kidney
CPT/HCPCS: 74177; Q9967

== ENCOUNTER 2023-09-30 09:58 | Outpatient (CLI) | payer OTHER, SELFPAY ==
--- NOTE | ~2023-09-30 | US_ITS ---
EXAMINATION: US biopsy abd retroperitoneal DATE: 09/30/2023 10:48 INDICATION: Right anterior abdominal wall mass. TECHNIQUE: The procedure including the risks, benefits, and alternatives was discussed with the patie nt. Risks discussed included bleeding and infection. The patient understood the risks and agreed to p roceed. The skin overlying the right abdomen was prepped and draped in usual sterile fashion. Anesth etic was administered with 1% lidocaine subcutaneously. An 18 gauge core biopsy needle was then used to obtain 3 core biopsy specimens under continuous sonographic guidance. The entry site was cleaned and dressed. There were no immediate complications. FINDINGS: Ultrasound images demonstrate the needle in a 7.2 x 4.3 cm hypoechoic mass in right anterio r abdominal wall. IMPRESSION: 1. Ultrasound-guided core needle biopsy of a mass in right anterior abdominal wall. Reviewed, dictated and finalized at location A. IMPRESSION: 1. Ultrasound-guided core needle biopsy of a mass in right anterior abdominal w all.
== END 2023-09-30 09:59 | disposition home or self-care (01) ==
LOC: ANHIMG 09:58
PROVIDERS: PCP Internal Medicine; Visit Provider Internal Medicine
DX: R19.03 Right lower quadrant abdominal swelling, mass and lump (principal)
CPT/HCPCS: 49180; 76942; 88305; 88342

== ENCOUNTER 2023-10-28 08:45 | Outpatient (CLI) | payer OTHER, SELFPAY ==
--- NOTE | ~2023-10-28 | PE_ITS ---
EXAMINATION: PET skull to mid thigh DATE: 10/28/2023 10:53 INDICATION: Malignant neoplasm of endometrial TECHNIQUE: Blood glucose level was 108 mg/dL. 10.465 mCi of 18-fluorodeoxyglucose (18-FDG) was admini stered i.v. Low dose computed tomography (CT) images were acquired from the base of the brain to the proximal thighs for attenuation correction and anatomic localization. Positron emission tomography (P ET) images were acquired in the same distribution beginning 54 minutes after injection. Images includ ing fused PET/CT images were reconstructed in axial, coronal, and sagittal planes. Automated exposure control technique was employed. The dose-length product was 1178.94mGy-cm. COMPARISON: CT abdomen and pelvis dated 09/23/2023 FINDINGS: Head/neck: There is symmetric increased activity in the oral cavity, lingual tonsils, laryngeal muscles and ocul ar muscles without CT correlate, likely physiologic. No pathologically enlarged cervical lymphadenopa thy or suspicious foci of increased FDG uptake in the visualized head or neck. Chest: Lungs are clear with no suspicious pulmonary nodules, pneumonia or pleural effusion. Heart size is no rmal. No pericardial effusion. No pathologically enlarged or FDG avid thoracic lymphadenopathy. Abdomen/pelvis/proximal thighs: Physiologic renal accumulation and excretion of FDG activity in the kidneys, bladder and along portio ns of ureters. Nonobstructing 2-3 mm stone at the lower pole of the right kidney. Heterogeneous diffu se hepatic steatosis with focal sparing along the gallbladder fossa. Normal degree and heterogenous p attern of increased uptake throughout the liver without radiologic correlate or dominant FDG avid les ion. The gallbladder, pancreas, spleen and bilateral adrenal glands are normal. Mild uptake scattered throughout the bowels without radiologic correlate, also likely physiologic. The uterus is not ident ified and has likely been surgically resected. There are 3 FDG avid masses within the right upper quadrant anterior abdominal wall musculature the l argest which is increased in size from 8.1 x 5.1 cm currently measuring 8.5 x 5.6 cm with maximal SUV of 21.1. There are couple smaller nodules more laterally along the abdominal wall the more cephalad measuring approximately 2.2 x 1.2 cm maximal SUV of 16.9 and a slightly more caudal measuring 3.0 x 1 .3 cm with maximal SUV of 11.0. There is small amount of likely skin contamination in the pudendal re gion. No other abnormal foci of increased FDG uptake or pathologically enlarged lymphadenopathy in th e abdomen, pelvis or proximal thighs. Musculoskeletal: There is diffuse mild increased marrow uptake in the spine and pelvis without radiologic correlate li rosie related to marrow stimulation. Mild uptake along the pubic symphysis with maximal SUV of 4.1 wit h symmetric sclerosis and erosive changes at the bilateral pubic bodies which could represent radiati on osteonecrosis or severe osteitis pubis of indeterminate etiology including osteolysis in the prope r clinical setting. IMPRESSION: 1. 3 FDG avid mass in the right upper quadrant anterior abdominal wall, the largest slight increase i n size since the prior study measuring 8.5 x 5.6 cm consistent with metastatic disease, potentially i mplants along a surgical wound. No other evident metastatic disease in the head/neck, chest, abdomen or pelvis. Reviewed, dictated and finalized at location A. IMPRESSION: 1. 3 FDG avid mass in the right upper quadrant anterior abdominal wall, the lar gest slight increase in size since the prior study measuring 8.5 x 5.6 cm consi stent with metastatic disease, potentially implants along a surgical wound. No other evident metastatic disease in the head/neck, chest, abdomen or pelvis.
[2023-10-28 09:25] LABS: Glucose Point of Care 108 mg/dl (65-105)
== END 2023-10-28 08:46 | disposition home or self-care (01) ==
PROVIDERS: PCP Internal Medicine; Visit Provider Internal Medicine
DX: C54.1 Malignant neoplasm of endometrium (principal); Z90.710 Acquired absence of both cervix and uterus
CPT/HCPCS: 78815; A9552

== ENCOUNTER 2024-09-16 13:26 | Outpatient (CLI) | payer OTHER, SELFPAY ==
--- NOTE | ~2024-09-16 | MM_ITS ---
EXAMINATION: MM screening wolf BI w bernardino HISTORY: Screening TECHNIQUE: Craniocaudal and mediolateral oblique 3-D tomosynthesis images were obtained and synthetic 2-D images were generated. CAD analysis was submitted and interpreted. COMPARISON: Comparison to multiple prior studies sequentially, with oldest reviewed study dated 12/2015. BREAST PARENCHYMAL COMPOSITION: Not dense: There are scattered areas of fibroglandular density. FINDINGS: There is no evidence of suspicious mass, calcification, or architectural distortion to sugg est malignancy in either breast. There has been no suspicious interval change. IMPRESSION: 1. No mammographic evidence of malignancy. 2. Recommend routine screening mammography in one year. BI-RADS Category 1: Negative Reviewed, dictated and finalized at location B.
--- OUTSIDE RECORDS SUMMARY | 2024-09-16 14:05 | XMS_ITS | Clinical Summary ---
Author Organization [facility] Address [address] [place] [address] Care Team Providers Care Manager Benefit Name Role Phone Ortega Reeves MD Primary Care Provider [phone] Allergies Active Allergy Reactions Criticality Noted Date Comments Sulfa Rash Medium 11/05/2023 Chest pain, arm numb Medications lidocaine-pril ocaine creamIndicatio ns:Administrat ion of Local Anesthesia Apply topically as needed for pain Apply 1 hour prior to IV access and cover. 30 g 1 02/02/20 24 Active pyridoxine (VITAMIN B6) 25 mg tablet Take 1 tablet (25 mg total) by mouth 2 (two) times a day as needed (Take up to two times day for symptom relief.) 90 tablet 3 03/03/20 24 Active levothyroxine (SYNTHROID) 100 mcg tablet Take 0.5 tablets (50 mcg total) by mouth every morning 06/18/[address] (CYMBALTA) 30 mg capsule Take 1 capsule (30 mg total) by mouth every morning 06/18/19 25 Active acetaminophen 500 mg capsuleIndicat ions:Pain Take 2 capsules (1,000 mg total) by mouth every 6 (six) hours 60 tablet 07/11/19 25 Active ibuprofen (ADVIL,MOTRIN) 600 mg tabletIndicati ons:Postoperat whitney Acute Pain Take 1 tablet (600 mg total) by mouth every 6 (six) hours 60 tablet 07/11/19 25 Active oxyCODONE (ROXICODONE) 5 mg immediate release tabletIndicati ons:Pain Take 1 tablet (5 mg total) by mouth every 4 (four) hours as needed for pain 10 tablet 07/11/19 25 Active apixaban (ELIQUIS) 2.5 mg tablet Take 1 tablet (2.5 mg total) by mouth 2 (two) times a day for 28 days 56 tablet 07/12/19 25 Active polyethylene glycol (MIRALAX) 17 gram/dose bulk powder Take 17 g by mouth daily 510 g 07/29/19 25 Active megestroL (MEGACE) 40 mg tabletIndicati ons:Endometria l Carcinoma Take 2 tablets (80 mg total) by mouth 2 (two) times a day 120 tablet 3 08/19/19 25 Active prochlorperazi ne (Compazine) 10 mg tabletIndicati ons:Endometria l cancer (HCC) Take 1 tablet (10 mg total) by mouth every 6 (six) hours as needed for nausea or vomiting 30 tablet 3 02/08/20 24 025 Discontinued ondansetron (ZOFRAN) 8 mg tabletIndicati ons:Endometria l cancer (HCC) Take 1 tablet (8 mg total) by mouth every 8 (eight) hours as needed for nausea or vomiting 30 tablet 3 02/08/20 24 025 Discontinued LORazepam (ATIVAN) 0.5 mg tabletIndicati ons:Endometria l cancer (HCC) Place 1 tablet (0.5 mg total) under the tongue every 6 (six) hours as needed (nausea or vomiting) 10 tablet 02/08/20 24 025 Discontinued Active Problems Patient Care Coordination No te Formatting of this note migh t be different from the original. 58yo w/ recurrent FIGO Gr1 endometrioid adenocarcinoma S/p 6c carbo/taxol and now resection of abdominal wall met 07/09/24 w/ reconstruction Plan 08.18.24: -Review CT -If disease, chemotherapy v. AI v. rasheed/pem v. consideration of RT to liver v. best supportive? Problem Noted Date Diagnosed Date COPD (chronic obstructive pulmonary disease) 09/2024 Rectal bleeding 05/05/2024 Overview (05/26/2024): - reported rectal bleeding for the last few weeks on 05/05/24. Pelvic and rectal exam unremarkable 05/05. 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 Discussed 100 mg TID PRN on days that neuropathy is flaring. Counseled on drowsiness side effect. Pt will nut picker from pharmacy. Endometrial cancer 11/05/2023 Overview (08/18/2024): History: - Patient had total hyst (including tubes and ovaries) in 11/2020 for endometrial cancer. Path: Endometrioid adenocarcinoma, FIGO grade 1, arising in atypical hyperplasia. - New abdominal mass noted 09/2023, biopsy c/w endometrioid adenocarcinoma, FIGO grade 1, arising in atypical hyperplasia - S/p ACCS referral for possible resection. However given liver lesions discussed at tumor board no indication for resection. She will need systemic chemo with carbo/taxol/+/- pembro pending tumor profiling. - CARIS test: MMR proficient. - s/p 6 cycles carbo/taxol 02/2024 - 06/2024 - 07/09/24 abdominal mass excision and incisional hernia repair, well healed on 07/28 Imaging: - CT C/A/P 10/13: Right rectus mass and peritoneal implant along the liver surface concerning for metastatic disease from reported endometrial primary 2. Indeterminate hypoenhancing segment 7 hepatic lesion. - PET scan: Large markedly FDG avid right-sided anterior abdominal wall mass with two segment 6 liver lesions - CT C/A/P (03/03/24): Positive treatment response as evidenced by decreased size of right anterior abdominal wall mass and perihepatic peritoneal deposit. - CT C/A/P 05/05/24: Continued disease response as manifested by decrease in the rectus abdominis and peritoneal metastases. -CT C/A/P 08/18/2024: interval increase, discussed with patient Plan: - CT C/A/P reviewed with patient, discussed plan to start chemotherapy with patient, will plan for liver MRI to further characterize prior to chemotherapy - Discussed risks and benefits of immunotherapy - Plan for US of abdomen to further assess abdominal wall mass Encounters Date Type Department Care Team Description 09/16/2024 Telephone [facility] Obstetrics and Gynecology [address] [place] [address] Advanced Medicine 13th [place] [address] [place] [address] Magalys Fuentes, RN Test Results 09/15/2024 Telephone [facility] [address] [place] [address] 3rd Floor [address] [place] [address] Ivonne Meehan LPN 09/10/2024 Telephone [facility] [address] [place] [address] 3rd Floor [address] [place] [phone] Kassandra Mckinney, JADEN 09/10/2024 Telephone [facility] [address] [place] [address] 3rd Floor [address] [place] [phone] Clarke Bravo 09/02/2024 2:26 PM CDT - 09/02/2024 11:59 PM CDT Hospital Encounter [facility] [address] [place] [address] Endometrial cancer (HCC); Abdominal mass, unspecified abdominal location Discharge Disposition: Discharge to home or self care 08/19/2024 Telephone [facility] Radiology [address] [place] [address] Gina Trivedi RN 08/19/2024 Telephone [facility] [address] [place] [address] 3rd Floor [address] [place] [phone] Zohra Shane 08/18/2024 1:30 PM CDT Office Visit [facility] [address] [place] [address] Endometrial cancer (HCC) (Primary Dx); Abdominal mass, unspecified abdominal location 08/18/2024 11:02 AM CDT - 08/18/2024 11:59 PM CDT Hospital Encounter [facility] [address] [place] [address] Endometrial cancer (HCC) Discharge Disposition: Discharge to home or self care 08/18/[address] [facility] [address] [place] [address] Justin Felix MD PhD 08/18/2024 Telephone [facility] Obstetrics and Gynecology [address] [place] [address] [place] [address] Lennie Art RN 08/18/2024 Orders Only [facility]s [facility] Gynecology [address] [place] [address] 13th [place] [address] [place] [address] Lennie Art RN 08/18/2024 Orders Only [facility] Ob[facility]etrics and Gynecology [address] [place] [address] 13th [place] [address] [place] [address] Lennie Art RN 07/28/2024 1:15 PM CDT Office Visit [facility] [address] [place] [address] Endometrial cancer (HCC) (Primary Dx) 07/20/2024 3:15 PM CDT Office Visit [facility] Minimally Invasive Surgery [address] [place] [address] 12th Floor, [place] [address] Walker Egan MD Incisional hernia, without obstruction or gangrene 07/14/2024 Orders Only [facility] Obstetrics and Gynecology [address] [place] [address] 13th [place] [address] [place] [address] Lennie Art RN Endometrial cancer (HCC) (Primary Dx); Low oxygen saturation 07/09/2024 12:15 PM CDT - 07/09/2024 5:15 PM CDT Surgery [facility] Operating Room [address] [place] [address] Marcel Wilson MD EXCISION OF ABDOMINAL WALL MASS, 07/09/2024 12:11 PM CDT Anesthesia Event [facility] Operating Room [address] [place] [address] Kindra Hernandez MD Doshi, Sonal Raj, NP 07/09/2024 10:08 AM CDT - 07/12/2024 2:08 PM CDT Hospital Encounter [facility] [address] [place] [address] Marcel Wilson MD Acute postoperative abdominal pain (Primary Dx); Endometrial cancer (HCC); Obstructive sleep apnea Discharge Disposition: Discharge to home or self care 07/08/2024 Telephone [facility] Obstetrics and Gynecology [address] [facility] Advanced Medicine 13th [place] [address] [place] [address] Marcel Wilson MD Surgery Confirmation 07/02/2024 Documentation [facility] Surgeon [address] [place] [address] Walker Egan MD 06/28/2024 2:00 PM CDT Pre-Admission Testing [facility] for Preoperative Assessment and Planning [facility] Advanced [facility] ([facility]) [address] [place] [address] Preoperative testing (Primary Dx) from Last 3 Months Surgical History Surgery Date Site/Laterality Comments PORT PLACEMENT CHEST >5 YEARS 02/10/2024 N/A TOTAL ABDOMINAL HYSTERECTOMY W/ BILATERAL SALPINGOOPHORECTOMY 04/07/2020 - 04/06/2021 US GUIDED ASPIRATION ABSCESS HEMATOMA CYST SOFT TISSUE 09/02/2024 N/A Medical History Medical History Date Comments Cancer (HCC) Fibromyalgia Carpal tunnel syndrome Hypothyroidism Anxiety COPD (chronic obstructive pulmonary disease) (HC C) Family History Medical History Relation Name Comments Anesthesia problems Neg Hx Social History Tobacco Use Types Packs/Day Years Used Date Smoking Tobacco: Former Cigarettes Smokeless Tobacco: Never Tobacco Cessation:Counseling Given: Not Answered Comments:Quit 2013 2pk/day AUDIT-C Answer Date Recorded Q1: How often do you have a drink containing alcohol? Never 07/09/2024 Q2: How many drinks containi ng alcohol do you have on a typical day when you are drinking? Patient does not drink Q3: How often do you have si x or more drinks on one occasion? Never 07/09/2024 Hunger Vital Sign Answer Date Recorded Within the past 12 months, y ou worried that your food would run out before you got the money to buy more. Patient declined Within the past 12 months, t he food you bought just didn't last and you didn't have money to get more. Patient declined Personal Safety Answer Date Recorded Have you ever been in or are you currently in a harmful physical or emotional relationship or is someone making you feel afraid or unsafe? Denies 07/09/2024 Comments No Sex and Gender Information Value Date Recorded Sex Assigned at Not on file Legal Sex Female 12:59 AM MANAGEMENT DEVELOPER Gender Identity Not on file Sexual Orientation Not on file Obstetrics History Last Filed Vital Signs Vital Sign Reading Time Taken Comments Blood Pressure 108/62 08/18/2024 1:59 PM CDT Pulse 75 08/18/2024 1:59 PM CDT Temperature 36.8 C (98.2 F) 08/18/2024 1:59 PM CDT Respiratory Rate 20 07/20/2024 3:31 PM CDT Oxygen Saturation 95% 08/18/2024 1:59 PM CDT Inhaled Oxygen Concentration - - Weight 111.9 kg (246 lb 12.8 oz) 08/18/2024 1:59 PM CDT Height 149.9 cm (4' 11) 07/20/2024 3:31 PM CDT Body Mass Index 49.85 07/20/2024 3:31 PM CDT Plan of Treatment Scheduled Procedures Name Priority Associated Diagnoses Date/Ti me COLONOSCOPY Rectal bleeding Health Maintenance Due Date Last Done Comments Breast Cancer Screening-Mammogram 1965 Depression Screening 1965 Hepatitis C Screening 1965 Hepatitis B Screening 12/07/1981 Regular Well Visit/Exam 18-64 12/07/1981 Pneumococcal vaccine <65 (1 of 2 - PCV) 12/07/1982 Zoster Vaccine (1 of 2) 12/07/1982 Influenza Vaccine (Season Ended) 2024 02/05/2019, 12/27/2016, 12/06/2014, Additional history exists DTaP/Tdap/Td Vaccine (2 - Td or Tdap) 05/22/2033 05/22/2023 Colon Cancer Screening-Colonoscopy 06/02/20342024 Medical Devices Implanted Type Area Bulb Farmworker Device Identifier Shelf Expiration Date Model / Serial / Lot Mesh Suture Inc Mesh Surgical Tissue Synthetic Duramesh 3.9mm Polypropylene Msi-300 - [id number] Implanted:Qty: 1 on 07/09/2024 by Walker Egan MD at [facility] Mesh [employer] [id number] 01/07/2027 MSI-300 / / [id number] Mesh Suture Inc Mesh Surgical Tissue Synthetic Duramesh 3.9mm Polypropylene Msi-300 - [id number] Implanted:Qty: 1 on 07/09/2024 by Walekr Egan MD at [facility] Mesh [employer] [id number] 01/07/2027 MSI-300 / / [id number] Mesh Suture Inc Mesh Surgical Tissue Synthetic Duramesh 3.9mm Polypropylene Msi-300 - [id number] Implanted:Qty: 1 on 07/09/2024 by Walker Egan MD at [facility] Mesh N/A: Abdomen MESH [employer] [id number] 01/07/2027 MSI-300 / / [id number] [employer] Xcela Power Port 8fr [id number] - [id number] Implanted:Qty: 1 on 02/10/2024 by Mariann Nelson PA at [facility] [employer] 08/09/2028 [id number] / / [id number] Procedures Procedure Name Priority Date/Time Associated Diagnosis Comments US GUIDED ASPIRATION ABSCESS HEMATOMA CYST SOFT TISSUE Schedule Routine, Read Routine (OP Routine) 09/02/2024 3:18 PM CDT Endometrial cancer (HCC) Abdominal mass, unspecified abdominal location CYTOLOGY Routine 09/02/2024 3:03 PM CDT Endometrial cancer (HCC) Abdominal mass, unspecified abdominal location CT CHEST ABDOMEN PELVIS W CONTRAST Schedule Routine, Read Routine (OP Routine) 08/18/2024 11:26 AM CDT Endometrial cancer (HCC) EGFR Routine 07/11/2024 9:16 PM CDT PHOSPHORUS Routine 07/11/2024 9:16 PM CDT MAGNESIUM Routine 07/11/2024 9:16 PM CDT BASIC METABOLIC PANEL Routine 07/11/2024 9:16 PM CDT CBC WITHOUT DIFFERENTIAL Routine 07/11/2024 9:16 PM CDT EGFR Timed 07/11/2024 2:58 PM CDT BASIC METABOLIC PANEL Timed 07/11/2024 2:58 PM CDT XR CHEST 1 VIEW ED Urgent/IP Urgent 07/11/2024 2:40 PM CDT HOME O2 EVAL (DESATURATION SCREEN) Routine 07/11/2024 10:07 AM CDT SODIUM, URINE, RANDOM Routine 07/11/2024 6:25 AM CDT CREATININE, URINE, RANDOM Routine 07/11/2024 6:25 AM CDT EGFR Routine 07/10/2024 8:11 PM CDT PHOSPHORUS Routine 07/10/2024 8:11 PM CDT MAGNESIUM Routine 07/10/2024 8:11 PM CDT BASIC METABOLIC PANEL Routine 07/10/2024 8:11 PM CDT CBC WITHOUT DIFFERENTIAL Routine 07/10/2024 8:11 PM CDT EGFR Routine 07/09/2024 8:30 PM CDT PHOSPHORUS Routine 07/09/2024 8:30 PM CDT MAGNESIUM Routine 07/09/2024 8:30 PM CDT BASIC METABOLIC PANEL Routine 07/09/2024 8:30 PM CDT CBC WITHOUT DIFFERENTIAL Routine 07/09/2024 8:30 PM CDT KS AN PROCEDURE PLACEHOLDER Routine 07/09/2024 1:11 PM CDT KS AN ELECTIVE ENDOTRACHEAL AIRWAY Routine 07/09/2024 1:11 PM CDT SURGICAL PATHOLOGY Routine 07/09/2024 1: 10 PM CDT Endometrial cancer (HCC) REPAIR INCISIONAL HERNIA 07/09/2024 12:18 PM CDT Endometrial cancer (HCC) Case Notes 3- Placed case in [place] office is adding a panel per Christina via staff msg (EF) 311- missing dpc email sent to resource nurse (EF) Special Needs Mesh EXCISION CYST/LESION/MASS - ABDOMEN 07/09/2024 12:18 PM CDT Endometrial cancer (HCC) Case Notes 07/02- Placed case in the [place] office is adding a panel per Christina via staff msg (EF) 11- missing dpc email sent to resource nurse (EF) Special Needs Mesh TYPE AND SCREEN 14 DAY Routine 06/28/2024 3:02 PM CDT Preoperative testing COLONOSCOPY 06/02/2024 2:59 PM MANAGEMENT DEVELOPER from Last 3 Months or Most Recently Relevant to Health Maintenance Results * US Guided Aspiration Abscess Hematoma Cyst Soft Tissue (09/02/2024 3:18 PM CDT) Anatomical Region Laterality Modality Entire body N/A Ultrasound 09/02/2024 3:36 PM CDT Impressions 09/02/2024 3:36 PM CDT 1. Successful ultrasound-guided fluid aspiration of right lower anterior abdominal wall complex fluid collection. 2. Please see separate laboratory results for final interpretation. The radiology attending physician has personally reviewed this study, and had reviewed and/or edited this written report and agrees with it. Electronically signed by: HARMONY Mcclure 09/02/2024 3:36 PM CDT EXAMINATION: ULTRASOUND-GUIDED FLUID ASPIRATION HISTORY: 58-year-old status post recent abdominal wall mass resection on 07/09/2024 with enlarging fluid collection seen on CT of 08/18/2024 COMPARISON: CT 08/18/2024 FINDINGS: Large complex fluid collection in the right lower anterior abdominal wall with internal linear echogenicities and septations, most consistent with an evolving hematoma. TECHNIQUE: The procedure for ultrasound-guided fluid aspiration was explained to and discussed with the patient. Risks were explained to include, but not be limited to, hemorrhage, infection, injury to adjacent organs, non-diagnostic specimen and adverse reaction to medications administered. The patient voiced understanding and wished to proceed and signed the consent form. The patient's overlying skin was prepped and draped in the usual sterile fashion. PROCEDURAL SEDATION: Local anesthesia only. FLUID ASPIRATION: The fluid collection was located in the right lower anterior abdominal wall and measured 10.5 cm x 17.4 cm x 8.5 cm. A site was localized for fluid aspiration. The patient's overlying skin was prepped and draped in the usual sterile fashion. Local anesthesia was achieved via subcutaneous and deep administration with 3 mL of Lidocaine 1%. Under realtime ultrasound guidance, the 18 gauge spinal needle was advanced into the collection and 70 mL of dark sanguinous fluid was obtained, 50 ml of which was sent for cytology. The samples were sent to the laboratory for further analysis. The patient's skin was cleaned and dressed. The patient tolerated the entire procedure well without immediate complications. HARMONY Mcclure, was present from the beginning to the end of the procedure. HARMONY Mcclure performed the biopsy. Dr. Raul Iqbal was present and participated in the procedure. Dr. Raul Iqbal (residential aide) personally participated in sonographic imaging of this patient. Procedure Note Torri Schwartz PA - 09/02/2024 EXAMINATION: ULTRASOUND-GUIDED FLUID ASPIRATION HISTORY: 58-year-old status post recent abdominal wall mass resection on 07/09/2024 with enlarging fluid collection seen on CT of 08/18/2024 COMPARISON: CT 08/18/2024 FINDINGS: Large complex fluid collection in the right lower anterior abdominal wall with internal linear echogenicities and septations, most consistent with an evolving hematoma. TECHNIQUE: The procedure for ultrasound-guided fluid aspiration was explained to and discussed with the patient. Risks were explained to include, but not be limited to, hemorrhage, infection, injury to adjacent organs, non-diagnostic specimen and adverse reaction to medications administered. The patient voiced understanding and wished to proceed and signed the consent form. The patient's overlying skin was prepped and draped in the usual sterile fashion. PROCEDURAL SEDATION: Local anesthesia only. FLUID ASPIRATION: The fluid collection was located in the right lower anterior abdominal wall and measured 10.5 cm x 17.4 cm x 8.5 cm. A site was localized for fluid aspiration. The patient's overlying skin was prepped and draped in the usual sterile fashion. Local anesthesia was achieved via subcutaneous and deep administration with 3 mL of Lidocaine 1%. Under realtime ultrasound guidance, the 18 gauge spinal needle was advanced into the collection and 70 mL of dark sanguinous fluid was obtained, 50 ml of which was sent for cytology. The samples were sent to the laboratory for further analysis. The patient's skin was cleaned and dressed. The patient tolerated the entire procedure well without immediate complications. HARMONY Mcclure, was present from the beginning to the end of the procedure. HARMONY Mcclure performed the biopsy. Dr. Raul Iqbal was present and participated in the procedure. Dr. Raul Iqbal (residential aide) personally participated in sonographic imaging of this patient. IMPRESSION: 1. Successful ultrasound-guided fluid aspiration of right lower anterior abdominal wall complex fluid collection. 2. Please see separate laboratory results for final interpretation. The radiology attending physician has personally reviewed this study, and had reviewed and/or edited this written report and agrees with it. Electronically signed by: HARMONY Mcclure us Melina Maldonado MD [facility] US PROCEDURES Final Result * Cytology (09/02/2024 3:03 PM CDT) Fluid (Fluid, NOS) 09/02/2024 3:03 PM CDT Narrative PATHOLOGY [facility] - 09/06/2024 10:45 AM CDT EPIC results best viewed via link to PDF [facility] [place] [facility] [place] [address] [place] [address] Note to Patients: This report may contain a detailed description of human tissue sent by a health care provider to the laboratory for pathologic evaluation. The content of this report is essential for diagnosis and may provide important critical findings. This information may be unfamiliar to patients to review without a medical professional present. It is advised that the patient review this report in the presence of a health care provider who can answer questions and explain the details. CYTOPATHOLOGY REPORT FINAL Patient Name: CHERYL ASENCIO Gender: F : 1965 (Age: 58) [address]: [address] [place] [address] Hospital #: [id number] Taken:09/02/2024 Received:09/02/2024 Reported: 09/06/2024 Patient Type: [facility] Ancillary Service: UNKNOWN Location: Physician(s): Melina Maldonado MD FINAL DIAGNOSIS A. RLQ abdominal wall fluid collection: - Negative for malignancy - Blood present (see comment) Comments The cytopreparations and cell block have partially degenerated blood elements and fibrin only. No malignancy is seen. /09/06/2024 09:26 By this signature, I attest that the above diagnosis is based upon my personal examination of the slides(and/or other material indicated in the diagnosis). Renetta Roque M.D. Report Electronically Reviewed and Signed Out By Renetta Roque M.D. 09/06/2024 10:45:31 JANAY Aj (ASCP) Gross Description A. RLQ abdominal wall fluid collection: 45 ml bloody fluid - 1 Pap stained ThinPrep, 1 Pap stained cytospin, 1 Diff-Quik stained cytospin, and cell block. (ep) Clinical Diagnosis and History The patient is a 58 year old female with recurrent metastatic endometrial cancer and excision of abdominal wall mass with pathology consistent with residual endometrioid adenocarcinoma (FIGO grade 1) with treatment effect and negative margins. REPORT IMAGES AND SCANNED DOCUMENTS, IF INCLUDED, ONLY VIEWABLE IN PDF VERSION OF REPORT The performance characteristics of some immunohistochemical stains, in-situ hybridization and fluorescence in-situ hybridization tests and immunophenotyping by flow cytometry cited in this report (if any) were determined by the Surgical Pathology and Flow Cytometry Departments at [facility] as part of an ongoing quality inspector program and in compliance with federally mandated regulations drawn from the Clinical Laboratory Improvement Act of 1988 (CLIA '88). Some of these tests rely on the use of analyte specific reagents and are subject to specific labeling requirements by the US Food and Drug Administration. Such diagnostic tests may only be performed in a facility that is certified by the Department of Health and Human Services as a high complexity laboratory under CLIA '88. The FDA has determined that such clearance or approval is not necessary. This test is used for clinical purposes. It should not be regarded as investigational or for research. Nevertheless, federal rules concerning the medical use of analyte specific reagents require that the following disclaimer be attached to the report: This test was developed and its performance characteristics determined by the Surgical Pathology and Flow Cytometry Departments of [facility]. It has not been cleared or approved by the U. S. Food and Drug Administration. Melina Maldonado MD LAB CYTOLOGY ORDERABLES Final Result PATHOLOGY [facility] 3rd Floor [place], [place] [phone] * CT Chest Abdomen Pelvis W Contrast (08/18/2024 11:26 AM CDT) Anatomical Region Laterality Modality Body N/A Computed Tomogra phy 08/18/2024 12:0 0 PM CDT Addenda Addendum by Leilani Lugo MD on 08/19/2024 11:33 AM CDT ADDENDUM Addendum issued at 08/19/2024 11:30 AM by Leilani Lugo MD. An addendum is being made to correct a portion of the findings and impression. There is a heterogenous hypoattenuating right rectus abdominus muscle collection in the location of a previously excised mass which has increased in size in comparison to the prior CT, currently measuring 17.2 x 9.1 cm in comparison to 6.3 x 1.8 cm. This collection is consistent with an enlarging hematoma. The addendum was discussed with the ordering physician by Aravind Yang MD. Electronically signed by: Leilani Lugo M.D. Impressions 08/18/2024 12:00 PM CDT 1. Significant interval increase in size of a right rectus abdominis muscle mass concerning for worsening metastatic disease. 2. Interval increase in peritoneal nodularity along the anterior surface of the liver. There is a stable hypoattenuating lesion along the periphery of the spleen which may also represent peritoneal metastatic deposit 3. Interval increase in size of a hypoattenuating lesion in hepatic segment 7/8 which may represent hepatic metastasis. Further evaluation with a dedicated MRI is recommended. 4. Nonobstructive right-sided nephrolithiasis. Electronically signed by: Leilani Lugo M.D. Narrative 08/18/2024 12:00 PM CDT EXAMINATION: Computed tomography of the chest, abdomen and pelvis with intravenous contrast HISTORY: Endometrial cancer and hernia monitoring. TECHNIQUE: Transaxial computed tomographic images of the chest, abdomen and pelvis were obtained with intravenous contrast according to the standard protocol after the uneventful administration of 94 mL Opti-Ray 350 intravenous contrast. COMPARISON: CT chest abdomen and pelvis, 05/05/2024 FINDINGS: Chest: Stable pulmonary nodules in the right lung including an 8 mm nodule in the right lower lobe, (series 3, image 85), a 3 mm nodule in the right lower lobe (series 3, image 84), and a 1.7 cm right lower lobe pulmonary nodule which previously measured 1.6 cm (series 3, image 16). Mild left basilar atelectasis. Persistent reticular opacities along the periphery of the right lung. No pulmonary nodules. No central pulmonary embolism. The thoracic aorta is normal in caliber. The heart is normal in size. No pericardial effusion. Atrophic appearance of the thyroid gland. Esophagus is within normal limits. No thoracic lymphadenopathy. Abdomen/Pelvis: Diffuse hepatic steatosis. No clearly evaluated, however there appears to be mild interval increase in size of a hypoattenuating lesion in hepatic segment 7/8 which measures 1.7 cm, previously 1.3 cm (series 2, image 133). The gallbladder, adrenal gland, and pancreas are within normal limits. Stable nonspecific hypoattenuating lesions are seen along the periphery of the spleen. The right kidney is mildly atrophic in comparison to the left kidney. There are multiple renal stones measuring up to 5 mm in the inferior pole of the right kidney. No hydronephrosis or nephrolithiasis. Urinary bladder is normal. Status post hysterectomy. No adnexal masses. Stomach is normal. Duodenal sweep is normal. The stomach and small bowel are normal in caliber and without focal wall thickening. Appendix is normal. No ascites. No pneumoperitoneum. Significant interval increase in size of a right rectus abdominis muscle mass which measures 17.2 x 9.1 cm in comparison to 6.3 x 1.8 cm. There appears to be interval increase in prominence of internal nodularity and septations. Stable appearance of a prominent periportal lymph node measuring up to 11 mm and mild interval increase in size of a right external iliac lymph node measuring 1.0 cm in short axis in comparison to 0.6 (series 2, image 30). No new lymphadenopathy. The abdominal aorta is normal in caliber with mild to moderate atherosclerosis. The main vessels of the abdomen and pelvis are patent. No suspicious osseous lesions. Procedure Note Parish, Leilani Layne MD - 08/18/2024 EXAMINATION: Computed tomography of the chest, abdomen and pelvis with intravenous contrast HISTORY: Endometrial cancer and hernia monitoring. TECHNIQUE: Transaxial computed tomographic images of the chest, abdomen and pelvis were obtained with intravenous contrast according to the standard protocol after the uneventful administration of 94 mL Opti-Ray 350 intravenous contrast. COMPARISON: CT chest abdomen and pelvis, 05/05/2024 FINDINGS: Chest: Stable pulmonary nodules in the right lung including an 8 mm nodule in the right lower lobe, (series 3, image 85), a 3 mm nodule in the right lower lobe (series 3, image 84), and a 1.7 cm right lower lobe pulmonary nodule which previously measured 1.6 cm (series 3, image 16). Mild left basilar atelectasis. Persistent reticular opacities along the periphery of the right lung. No pulmonary nodules. No central pulmonary embolism. The thoracic aorta is normal in caliber. The heart is normal in size. No pericardial effusion. Atrophic appearance of the thyroid gland. Esophagus is within normal limits. No thoracic lymphadenopathy. Abdomen/Pelvis: Diffuse hepatic steatosis. No clearly evaluated, however there appears to be mild interval increase in size of a hypoattenuating lesion in hepatic segment 7/8 which measures 1.7 cm, previously 1.3 cm (series 2, image 133). The gallbladder, adrenal gland, and pancreas are within normal limits. Stable nonspecific hypoattenuating lesions are seen along the periphery of the spleen. The right kidney is mildly atrophic in comparison to the left kidney. There are multiple renal stones measuring up to 5 mm in the inferior pole of the right kidney. No hydronephrosis or nephrolithiasis. Urinary bladder is normal. Status post hysterectomy. No adnexal masses. Stomach is normal. Duodenal sweep is normal. The stomach and small bowel are normal in caliber and without focal wall thickening. Appendix is normal. No ascites. No pneumoperitoneum. Significant interval increase in size of a right rectus abdominis muscle mass which measures 17.2 x 9.1 cm in comparison to 6.3 x 1.8 cm. There appears to be interval increase in prominence of internal nodularity and septations. Stable appearance of a prominent periportal lymph node measuring up to 11 mm and mild interval increase in size of a right external iliac lymph node measuring 1.0 cm in short axis in comparison to 0.6 (series 2, image 30). No new lymphadenopathy. The abdominal aorta is normal in caliber with mild to moderate atherosclerosis. The main vessels of the abdomen and pelvis are patent. No suspicious osseous lesions. IMPRESSION: 1. Significant interval increase in size of a right rectus abdominis muscle mass concerning for worsening metastatic disease. 2. Interval increase in peritoneal nodularity along the anterior surface of the liver. There is a stable hypoattenuating lesion along the periphery of the spleen which may also represent peritoneal metastatic deposit 3. Interval increase in size of a hypoattenuating lesion in hepatic segment 7/8 which may represent hepatic metastasis. Further evaluation with a dedicated MRI is recommended. 4. Nonobstructive right-sided nephrolithiasis. Electronically signed by: Leilani Lugo M.D. us Giselle Ricci MD IMG CT PROCEDURES Edited Res ult - Final * eGFR (07/11/2024 9:16 PM CDT) eGFR 76 >=60 mL/min/1. 73 m2 Comment: Interpretive Data Reference Interval Normal >/= 90 mL/min/1.73m2 Mildly decreased* 60 - 89 mL/min/1.73m2 Mildly to moderately decreased 45 - 59 mL/min/1.73m2 Moderately to severely decreased 30 - 44 mL/min/1.73m2 Severely decreased 15 - 29 mL/min/1.73m2 Kidney Failure < 15 mL/min/1.73m2 *Relative to young adult level Estimated glomerular filtration rate is determined by the 2020 CKD-EPI equation recommended by the National Kidney Foundation (A Unifying Approach to GFR Estimation: Recommendations of the NKF-ASK Task Force on Reassessing the Inclusion of Race in Diagnosing Kidney Disease, JASN 2020). The CKD-EPI equation should not be used for patients with unstable renal function and has not been validated in children and those over 70. Current interpretive data was last reviewed 2021. Blood 07/11/2024 9:16 PM CDT 07/11/2024 9:54 PM CDT us Premal Jim Wilson MD LAB BLOOD ORDERABLES Fin al Result [facility] Department [place] [address] * (ABNORMAL) CBC without differential (07/11/2024 9:16 PM CDT) WBC 6.23 3.80 - 9.90 K/cumm Hgb 10.4(L) 11.9 - 15.5 g/dL [facility] Hct 32.5(L) 35.6 - 45.5 % [facility] Plt 274 150 - 400 K/cumm [facility] MPV 9.1 9.1 - 12.3 fL [facility] RBC 2.96(L) 3.90 - 5.20 M/cumm [facility] MCV 109.8(H) 81.3 - 96.4 fL [facility] MCH 35.1(H) 27.1 - 33.3 pg [facility] MCHC 32.0(L) 32.3 - 35.7 g/dL [facility] RDW CV 14.8 11.1 - 14.9 % [facility] RDW SD 59.5(H) 35.7 - 48.1 fL [facility] NRBC abs 0.00 0.00 - 0.01 K/cumm [facility] Blood 07/11/2024 9:16 PM CDT 07/11/2024 9:54 PM CDT [facility] LAB BLOOD ORDERABLES Fin al Result Performing Organization Address [facility] Co de Phone Number [facility] [place] [address] * Phosphorus (07/11/2024 9:16 PM CDT) Pathologist [facility] Phosphorus, pl 2.4 2.3 - 4.5 mg/dL Blood 07/11/2024 9:16 PM CDT 07/11/2024 9:54 PM CDT [facility] MD LAB BLOOD ORDERABLES Fin al Result Performing Organization Address [facility] de Phone Number [facility] Department [place] [address] * Magnesium (07/11/2024 9:16 PM CDT) [facility] Magnesium 2.0 1.4 - 2.5 mg/dL Blood 07/11/2024 9:16 PM CDT 07/11/2024 9:54 PM CDT [facility] MD LAB BLOOD ORDERABLES Fin al Result Performing Organization Address [facility] [place] [address] * Basic metabolic panel (07/11/2024 9:16 PM CDT) [facility] Sodium 142 135 - 145 mmol/L Potassium, pl 4.1 3.3 - 4.9 mmol/L [facility] Chloride 102 97 - 110 mmol/L [facility] CO2 32 22 - 32 mmol/L [facility] Anion gap 8 2 - 15 mmol/L [facility] BUN 13 6 - 25 mg/dL [facility] Creatinine 0.87 0.60 - 1.10 mg/dL [facility] Glucose 118 70 - 199 mg/dL [facility] Comment: Interpretive Data Fasting glucose >/= 126 mg/dl is diagnostic for diabetes. Fasting is defined as no caloric intake for at least 8 hours. Fasting glucose between 100 mg/dl to 125 mg/dl is diagnostic of prediabetes. In a patient with classic symptoms of hyperglycemia or hyperglycemic crisis, a random glucose >/= 200 mg/dl is diagnostic for diabetes. In the absence of unequivocal hyperglycemia, results should be confirmed by repeat testing. The classification and Diagnosis of Diabetes Diabetes Care 2021; 46: S19-S40. Current interpretive data was last revised 2022. Calcium 8.6 8.5 - 10.3 mg/dL [facility] Blood 07/11/2024 9:16 PM CDT 07/11/2024 9:54 PM CDT [facility] Jim Wilson MD LAB BLOOD ORDERABLES Fin al Result [facility] Department [place] [address] * eGFR (07/11/2024 2:58 PM CDT) eGFR 69 >=60 mL/min/1. 73 m2 Comment: Interpretive Data Reference Interval Normal >/= 90 mL/min/1.73m2 Mildly decreased* 60 - 89 mL/min/1.73m2 Mildly to moderately decreased 45 - 59 mL/min/1.73m2 Moderately to severely decreased 30 - 44 mL/min/1.73m2 Severely decreased 15 - 29 mL/min/1.73m2 Kidney Failure < 15 mL/min/1.73m2 *Relative to young adult level Estimated glomerular filtration rate is determined by the 2020 CKD-EPI equation recommended by the National Kidney Foundation (A Unifying Approach to GFR Estimation: Recommendations of the NKF-ASK Task Force on Reassessing the Inclusion of Race in Diagnosing Kidney Disease, JASN 2020). The CKD-EPI equation should not be used for patients with unstable renal function and has not been validated in children and those over 70. Current interpretive data was last reviewed 2021. Blood 07/11/2024 2:58 PM CDT 07/11/2024 3:44 PM CDT [facility] Jim Wilson MD LAB BLOOD ORDERABLES Fin al Result Performing Organization Address [facility] Co de Phone Number [facility] Department [place] [address] * Basic metabolic panel (07/11/2024 2:58 PM CDT) Pathologist [facility] Sodium 141 135 - 145 mmol/L Potassium, pl 4.6 3.3 - 4.9 mmol/L [facility] Chloride 101 97 - 110 mmol/L [facility] CO2 32 22 - 32 mmol/L [facility] Anion gap 8 2 - 15 mmol/L [facility] BUN 16 6 - 25 mg/dL [facility] Creatinine 0.94 0.60 - 1.10 mg/dL [facility] Glucose 127 70 - 199 mg/dL [facility] Comment: Interpretive Data Fasting glucose >/= 126 mg/dl is diagnostic for diabetes. Fasting is defined as no caloric intake for at least 8 hours. Fasting glucose between 100 mg/dl to 125 mg/dl is diagnostic of prediabetes. In a patient with classic symptoms of hyperglycemia or hyperglycemic crisis, a random glucose >/= 200 mg/dl is diagnostic for diabetes. In the absence of unequivocal hyperglycemia, results should be confirmed by repeat testing. The classification and Diagnosis of Diabetes Diabetes Care 202; 46: S19-S40. Current interpretive data was last revised 2022. Calcium 9.1 8.5 - 10.3 mg/dL [facility] Blood 07/11/2024 2:58 PM CDT 07/11/2024 3:44 PM CDT [facility] Jim Wilson MD LAB BLOOD ORDERABLES Fin al Result Performing Organization Address [facility] de Phone Number [facility] Department [place] [address] * XR Chest 1 View (07/11/2024 2:40 PM CDT) Anatomical Region Laterality Modality Body, Chest N/A Computed Radiogr aphy 07/11/2024 4:20 PM CDT Impressions 07/11/2024 8:24 PM CDT Comparison made with CT dated 05/05/2024. Right chest port catheter terminates overlying the superior cavoatrial junction. Bilateral interstitial opacities may represent mild pulmonary edema. Mild bibasilar atelectasis. No pleural effusion or pneumothorax. Stable cardiomediastinal silhouette. Dictated by: Maryan Cai MD The radiology attending physician has personally reviewed this study, and had reviewed and/or edited this written report and agrees with it. Electronically signed by: Alessandro Ruiz M.D. Narrative 07/11/2024 8:24 PM CDT EXAMINATION: 1 view chest radiograph Procedure Note Alessandro Ruiz MD - 07/11/2024 EXAMINATION: 1 view chest radiograph IMPRESSION: Comparison made with CT dated 05/05/2024. Right chest port catheter terminates overlying the superior cavoatrial junction. Bilateral interstitial opacities may represent mild pulmonary edema. Mild bibasilar atelectasis. No pleural effusion or pneumothorax. Stable cardiomediastinal silhouette. Dictated by: Maryan Cai MD The radiology attending physician has personally reviewed this study, and had reviewed and/or edited this written report and agrees with it. Electronically signed by: Alessandro Ruiz M.D. us Premal Jim Wilson MD IMG XR PROCEDURES Final Result * Sodium, urine, random (07/11/2024 6:25 AM CDT) Sodium, ur 21 mmol/L Comment: Interpretive Data No reference range established. Current interpretive data was last revised 2018. Urine 07/11/2024 6:25 AM CDT 07/11/2024 6:48 AM CDT Marcel Wilson MD LAB URINE ORDERABLES Fin al Result Performing Organization Address [facility] Co de Phone Number [facility] [place] [address] * Creatinine, urine, random (07/11/2024 6:25 AM CDT) Creatinine Ur 185.1 mg/dL Comment: Interpretive Data No reference range established. Current interpretive data was last revised 2018. Urine 07/11/2024 6:25 AM CDT 07/11/2024 6:48 AM CDT [facility] LAB URINE ORDERABLES Fin al Result Performing Organization Address [facility] de Phone Number [facility] [place] [address] * (ABNORMAL) eGFR (07/10/2024 8:11 PM CDT) eGFR 54(L) >=60 mL/min/1. 73 m2 Comment: Interpretive Data Reference Interval Normal >/= 90 mL/min/1.73m2 Mildly decreased* 60 - 89 mL/min/1.73m2 Mildly to moderately decreased 45 - 59 mL/min/1.73m2 Moderately to severely decreased 30 - 44 mL/min/1.73m2 Severely decreased 15 - 29 mL/min/1.73m2 Kidney Failure < 15 mL/min/1.73m2 *Relative to young adult level Estimated glomerular filtration rate is determined by the 2020 CKD-EPI equation recommended by the National Kidney Foundation (A Unifying Approach to GFR Estimation: Recommendations of the NKF-ASK Task Force on Reassessing the Inclusion of Race in Diagnosing Kidney Disease, JASN 2020). The CKD-EPI equation should not be used for patients with unstable renal function and has not been validated in children and those over 70. Current interpretive data was last reviewed 2021. Blood 07/10/2024 8:11 PM CDT 07/10/2024 8:55 PM CDT [facility] Jim Wilson MD LAB BLOOD ORDERABLES Fin al Result Performing Organization Address [facility] de Phone Number [facility] Department [place] [address] * (ABNORMAL) CBC without differential (07/10/2024 8:11 PM CDT) WBC 5.62 3.80 - 9.90 K/cumm Hgb 10.6(L) 11.9 - 15.5 g/dL [facility] Hct 33.1(L) 35.6 - 45.5 % [facility] Plt 282 150 - 400 K/cumm [facility] MPV 9.1 9.1 - 12.3 fL [facility] RBC 2.93(L) 3.90 - 5.20 M/cumm [facility] MCV 113.0(H) 81.3 - 96.4 fL [facility] MCH 36.2(H) 27.1 - 33.3 pg [facility] MCHC 32.0(L) 32.3 - 35.7 g/dL [facility] RDW CV 15.2(H) 11.1 - 14.9 % [facility] RDW SD 63.5(H) 35.7 - 48.1 fL [facility] NRBC abs 0.00 0.00 - 0.01 K/cumm [facility] Blood 07/10/2024 8:11 PM CDT 07/10/2024 8:55 PM CDT Premlaure Wilson MD LAB BLOOD ORDERABLES Fin al Result Performing Organization Address [facility] Co de Phone Number [facility] Department [place] [address] * Phosphorus (07/10/2024 8:11 PM CDT) Phosphorus, pl 3.6 2.3 - 4.5 mg/dL Blood 07/10/2024 8:11 PM CDT 07/10/2024 8:55 PM CDT [facility] Jim Wilson MD LAB BLOOD ORDERABLES Fin al Result Performing Organization Address [facility] de Phone Number [facility] [place] [address] * Magnesium (07/10/2024 8:11 PM CDT) Pathologist [facility] Magnesium 2.3 1.4 - 2.5 mg/dL Blood 07/10/2024 8:11 PM CDT 07/10/2024 8:55 PM CDT [facility] Jim Wilson MD LAB BLOOD ORDERABLES Fin al Result Performing Organization Address [facility] de Phone Number [facility] [place] [address] * (ABNORMAL) Basic metabolic panel (07/10/2024 8:11 PM CDT) Pathologist [facility] Sodium 142 135 - 145 mmol/L Potassium, pl 4.0 3.3 - 4.9 mmol/L [facility] Chloride 104 97 - 110 mmol/L [facility] CO2 29 22 - 32 mmol/L [facility] Anion gap 9 2 - 15 mmol/L [facility] BUN 23 6 - 25 mg/dL [facility] Creatinine 1.16(H) 0.60 - 1.10 mg/dL [facility] Glucose 125 70 - 199 mg/dL [facility] Comment: Interpretive Data Fasting glucose >/= 126 mg/dl is diagnostic for diabetes. Fasting is defined as no caloric intake for at least 8 hours. Fasting glucose between 100 mg/dl to 125 mg/dl is diagnostic of prediabetes. In a patient with classic symptoms of hyperglycemia or hyperglycemic crisis, a random glucose >/= 200 mg/dl is diagnostic for diabetes. In the absence of unequivocal hyperglycemia, results should be confirmed by repeat testing. The classification and Diagnosis of Diabetes Diabetes Care 2022; 46: S19-S40. Current interpretive data was last revised 2022. Calcium 8.7 8.5 - 10.3 mg/dL [facility] Blood 07/10/2024 8:11 PM CDT 07/10/2024 8:55 PM CDT [facility] Jim Wilson MD LAB BLOOD ORDERABLES Fin al Result Performing Organization Address [facility] Co de Phone Number [facility] Department [place] [address] * eGFR (07/09/2024 8:30 PM CDT) eGFR 80 >=60 mL/min/1. 73 m2 Comment: Interpretive Data Reference Interval Normal >/= 90 mL/min/1.73m2 Mildly decreased* 60 - 89 mL/min/1.73m2 Mildly to moderately decreased 45 - 59 mL/min/1.73m2 Moderately to severely decreased 30 - 44 mL/min/1.73m2 Severely decreased 15 - 29 mL/min/1.73m2 Kidney Failure < 15 mL/min/1.73m2 *Relative to young adult level Estimated glomerular filtration rate is determined by the 2020 CKD-EPI equation recommended by the National Kidney Foundation (A Unifying Approach to GFR Estimation: Recommendations of the NKF-ASK Task Force on Reassessing the Inclusion of Race in Diagnosing Kidney Disease, JASN 2020). The CKD-EPI equation should not be used for patients with unstable renal function and has not been validated in children and those over 70. Current interpretive data was last reviewed 2021. Blood 07/09/2024 8:30 PM CDT 07/09/2024 9:18 PM CDT [facility] Jim Wilson MD LAB BLOOD ORDERABLES Fin al Result Performing Organization Address [facility]/ZIP Co de Phone Number [facility] Department [place] [address] * (ABNORMAL) CBC without differential (07/09/2024 8:30 PM CDT) WBC 11.46(H) 3.80 - 9.90 K/cumm Hgb 11.7(L) 11.9 - 15.5 g/dL [facility] Hct 37.6 35.6 - 45.5 % [facility] Plt 296 150 - 400 K/cumm [facility] MPV 8.9(L) 9.1 - 12.3 fL [facility] RBC 3.33(L) 3.90 - 5.20 M/cumm [facility] MCV 112.9(H) 81.3 - 96.4 fL [facility] MCH 35.1(H) 27.1 - 33.3 pg [facility] MCHC 31.1(L) 32.3 - 35.7 g/dL [facility] RDW CV 15.0(H) 11.1 - 14.9 % [facility] [facility] RDW SD 62.8(H) 35.7 - 48.1 fL [facility] NRBC abs 0.00 0.00 - 0.01 K/cumm [facility] Blood 07/09/2024 8:30 PM CDT 07/09/2024 9:19 PM CDT [facility] Wilson MD LAB BLOOD ORDERABLES Fin al Result Performing Organization Address [facility] de Phone Number [facility] [place] [address] * Phosphorus (07/09/2024 8:30 PM CDT) Pathologist [facility] Phosphorus, pl 4.5 2.3 - 4.5 mg/dL Blood 07/09/2024 8:30 PM CDT 07/09/2024 9:18 PM CDT [facility] Jim Wilson MD LAB BLOOD ORDERABLES Fin al Result Performing Organization Address [facility] Co de Phone Number [facility] Department [place] [address] * Magnesium (07/09/2024 8:30 PM CDT) Pathologist [facility] Magnesium 2.1 1.4 - 2.5 mg/dL Blood 07/09/2024 8:30 PM CDT 07/09/2024 9:18 PM CDT [facility] Jim Wilson MD LAB BLOOD ORDERABLES Fin al Result [facility] Department [place] [address] * Basic metabolic panel (07/09/2024 8:30 PM CDT) [facility] Sodium 143 135 - 145 mmol/L Potassium, pl 4.9 3.3 - 4.9 mmol/L [facility] Chloride 104 97 - 110 mmol/L [facility] CO2 30 22 - 32 mmol/L [facility] Anion gap 9 2 - 15 mmol/L [facility] BUN 13 6 - 25 mg/dL [facility] Creatinine 0.84 0.60 - 1.10 mg/dL [facility] Glucose 147 70 - 199 mg/dL [facility] Comment: Interpretive Data Fasting glucose >/= 126 mg/dl is diagnostic for diabetes. Fasting is defined as no caloric intake for at least 8 hours. Fasting glucose between 100 mg/dl to 125 mg/dl is diagnostic of prediabetes. In a patient with classic symptoms of hyperglycemia or hyperglycemic crisis, a random glucose >/= 200 mg/dl is diagnostic for diabetes. In the absence of unequivocal hyperglycemia, results should be confirmed by repeat testing. The classification and Diagnosis of Diabetes Diabetes Care 2021; 46: S19-S40. Current interpretive data was last revised 2022. Calcium 8.8 8.5 - 10.3 mg/dL [facility] Blood 07/09/2024 8:30 PM CDT 07/09/2024 9:18 PM CDT Premal Jim Wilson MD LAB BLOOD ORDERABLES Fin al Result [facility] Department [place] [address] * KS AN ELECTIVE ENDOTRACHEAL AIRWAY, KS AN PROCEDURE PLACEHOLDER (07/09/2024 1:11 PM CDT) Narrative Palmira Sanchez CRNA - 07/09/2024 1:11 PM CDT Palmira Sanchez CRNA 07/09/2024 1:12 PM Airway Patient location: OR Urgency: elective Indications for airway management: anesthesia Difficult airway: no Staff: Supervising provider: Kindra Hernandez MD Placed by: Other staff: Tiffani López RN Emergent airway documentation: Risks and benefits discussed: yes Consent obtained: yes Consent given by: patient Airway prep: Preoxygenated: yes Patient position: sniffing MILS maintained throughout: yes Mask difficulty assessment: 1 - vent by mask Sedation level during airway: GA Final airway details: Final airway type: endotracheal airway Tube type: ETT ETT size: 7.0 mm Cuffed: yes Technique used for successful ETT placement: video laryngoscopy Devices/Methods used in placement: intubating stylet Insertion site: oral Blade type: Juan Blade size: 3 Cormack-Lehane (direct): grade IIb - view of arytenoids or posterior of glottis only Cormack-Lehane (video): grade I - full view of glottis Cuff inflated with: air ETT to teeth: 22 cm Placement verified by: auscultation and CO2 detection Airway secured with: silk tape Number of attempts: 1 us Kindra Hernandez MD ANESTHESIA ORDERABLES Final Result * Surgical pathology (07/09/2024 1:10 PM CDT) Tissue (Mass/Tumor/Lesio n) 07/09/2024 1:10 PM CDT Narrative PATHOLOGY [facility] - 07/16/2024 5:01 PM CDT EPIC results best viewed via link to PDF [facility] [place] [address] Note to Patients: This report may contain a detailed description of human tissue sent by a health care provider to the laboratory for pathologic evaluation. The content of this report is essential for diagnosis and may provide important critical findings. This information may be unfamiliar to patients to review without a medical professional present. It is advised that the patient review this report in the presence of a health care provider who can answer questions and explain the details. SURGICAL PATHOLOGY REPORT FINAL Patient Name: CHERYL ASENCIO Gender: F : 1965 (Age: 58) Address: [address] [place] [address] Hospital #: [id number] Taken:07/09/2024 Received:07/09/2024 Reported: 07/16/2024 Patient Type: [facility] Inpatient Service: Gynecology Location: [place] [address] Physician(s): Lee Castillo M.D. 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 Maxx Perez M.D., Ph.D. Report Electronically Reviewed and Signed Out By Maxx Perez M.D., Ph.D. 07/16/2024 17:01:45 Microscopic Description and Comment: Microscopic examination substantiates the diagnosis. There is copious stroma present, which together with the presence of glandular structures (involved by carcinoma), gives the impression of a background of endometriosis. It is not known if this is simply the appearance of the treated carcinoma, vs. actual endometriosis involved by carcinoma. Case reviewed with Dr. Guerrero for quality inspector. Scanned slides from [id number] have also been reviewed. Galina Hernandez M.D. History: The patient is a 58-year-old woman with a history of endometrial cancer status post total abdominal hysterectomy and bilateral salpingo-oophorectomy in 2020, with biopsy proven abdominal recurrence ([id number]) status post chemotherapy. Operative procedure: Excision of abdominal wall mass, defect 9 x 9 cm, repair incisional hernia Specimen(s) Received: A: Abdominal wall metastasis Gross Description: Received in formalin labeled with the patient's identifiers and designated abdominal wall metastasis is an unoriented and roughly elliptical/ovoid excision of manning- montiel fibrofatty soft tissue/muscle (2.8 x 5.9 x 3.4 cm in greatest dimension). One broad surface of the excision is largely covered with fibrofatty apparent subcutaneous tissue which overlies a portion of thin, tenacious and fibromembranous tissue/fascia. The opposite broad surface is covered with glistening and freely movable apparent peritoneum. The putative superficial surface is inked blue, the apparent deep/peritoneal surface is inked black, and the peripheral margin is inked green. The specimen is sectioned perpendicular to the long axis revealing an ill- defined white-manning, firm and fibrous mass within the apparent fascia. The mass measures up to 5.7 x 2.6 x 1.6 cm and grossly invades into the overlying apparent subcutaneous tissue and the underlying apparent abdominal wall tissue. The mass is also surrounded by pale yellow-pale montiel apparent fat necrosis. At closest approach the mass is within 1 cm of the subcutaneous/superficial margin and within 1 cm of the apparent deep margin. The mass comes to within 0.3 cm of the closest peripheral margin. Powdered Metal Supervisor sections are submitted: A1 = mass with closest approach to apparent superficial; A2 = mass with closest approach to apparent deep; A3 = ocean import representative mass closest approach to peripheral margin. Jar 2. sxv/07/12/2024 10:24 PA(s): Brijesh Samuel MS, PA ([facility])CM By this signature, I attest that the above diagnosis is based upon my personal examination of the slides(and/or other material). Addenda/Procedures The performance characteristics of some immunohistochemical stains, fluorescence in-situ hybridization tests and immunophenotyping by flow cytometry cited in this report (if any) were determined by the Surgical Pathology and Flow Cytometry Departments at [facility] as part of an ongoing quality inspector program and in compliance with federally mandated regulations drawn from the Clinical Laboratory Improvement Act of 1988 (CLIA '88). Some of these tests rely on the use of analyte specific reagents and are subject to specific labeling requirements by the US Food and Drug Administration. Such diagnostic tests may only be performed in a facility that is certified by the Department of Health and Human Services as a high complexity laboratory under CLIA '88. The FDA has determined that such clearance or approval is not necessary. This test is used for clinical purposes. It should not be regarded as investigational or for research. Nevertheless, federal rules concerning the medical use of analyte specific reagents require that the following disclaimer be attached to the report: This test was developed and its performance characteristics determined by the Surgical Pathology and Flow Cytometry Departments of [facility]. It has not been cleared or approved by the U. S. Food and Drug Administration. IMAGES AND SCANNED DOCUMENTS, IF INCLUDED, ONLY VIEWABLE IN PDF VERSION OF REPORT [facility] Wilson MD LAB PATHOLOGY ORDERABLES Final Result PATHOLOGY [facility] 3rd Floor [place], [place] [phone] * TYPE AND SCREEN 14 DAY (06/28/2024 3:02 PM CDT) ABO Rh A Positive Afshin, indirect Negative [facility] Blood 06/28/2024 3:02 PM CDT 06/28/2024 3:43 PM CDT Narrative [facility] - 06/28/2024 5:02 PM CDT Is this test being ordered in advance for a procedure?->Yes Expected date of procedure:->07/09/24 Has the patient been transfused in the past 3 months?->No Has the patient been in the past 3 months?->No Yomi Werner MD LAB BLOOD BANK TEST O RDERABLES Final Result [facility] Department [place] [address] * Colonoscopy (06/02/2024 2:59 PM MANAGEMENT DEVELOPER) Anatomical Region Laterality Modality Other Narrative Procedure Note Bethanie Nichols MD - 06/02/2024 2:59 PM CST ENDOSCOPY LAB Patient Name: Cheryl Asencio Procedure Date: 06/02/2024 2:59 PM Date of : 1965 Admit Type: Outpatient Age: 58 Gender: Female Attending MD: Bethanie Nichols M.D. Room: [facility] ENDOSCOPY ROOM 05 Note Status: Finalized Procedure: Colonoscopy Indications: Rectal bleeding Providers: Bethanie Nichols M.D. Referring MD: Ortega Reeves M.D., Sherrie Pruett M.D. Medicines: Monitored Anesthesia Care Complications: No immediate complications. Estimated Blood Loss: Estimated blood loss: none. Procedure: Pre-Anesthesia Assessment: - Prior to the procedure, a History and Physicalwas performed, and patient medications and allergieswere reviewed. The patient's tolerance of previous anesthesia was also reviewed. The risks andbenefits of the procedure and the sedation options and risks were discussed with the patient. All questions were answered, and informed consent was obtained. Prior Anticoagulants: The patient has taken noanticoagulant or antiplatelet agents. ASA Grade Assessment: III -A patient with severe systemic disease. Afterreviewing the risks and benefits, the patient was deemed in satisfactory condition to undergo the procedure. The benefits, risks and alternatives of theprocedure and sedation were discussed and informed consentwas obtained. All questions were answered. Please referto the signed informed consent document in the medical record. The scope was passed under direct vision.The [id number] was introduced through the anusand advanced to the cecum, identified by appendiceal orifice and ileocecal valve. The colonoscopy was performed without difficulty. The patient tolerated the procedure well. The quality of the bowel preparation was evaluated using the BBPS (BostonBowel Preparation Scale) with scores of: Right Colon = 2 (minor amount of residual staining, small fragmentsof stool and/or opaque liquid, but mucosa seen well), Transverse Colon = 2 (minor amount of residual staining, small fragments of stool and/or opaque liquid, but mucosa seen well) and Left Colon = 2 (minor amount of residual staining, small fragmentsof stool and/or opaque liquid, but mucosa seen well).The total BBPS score equals 6. The quality of the bowel preparation was fair. The ileocecal valve,appendiceal orifice, and rectum were photographed. Findings: The perianal and digital rectal examinations were normal. A 3 mm polyp was found in the rectum. The polyp was sessile. Thepolyp was removed with a cold snare. Resection and retrieval werecomplete. External and internal hemorrhoids were found during endoscopy. The hemorrhoids were large. Impression: - Preparation of the colon was fair. - One 3 mm polyp in the rectum, removed with a cold snare. Resected and retrieved. - External and internal hemorrhoids, likelyetiology of rectal bleeding. Recommendation: - Patient has a contact number available for emergencies. The signs and symptoms of potential delayed complications were discussed with thepatient. Return to normal activities tomorrow. Written discharge instructions were provided to thepatient. - Discharge patient to home (with escort). - Resume previous diet. - Continue present medications. - Use Miralax as needed to soften stool. Avoid straining and sitting on toilet for more than 2 minutes when having a bowel movement. - Await pathology results. - Repeat colonoscopy in 7-10 years forsurveillance, depending on overall health status. - In the unusual situation that you developabdominal pain, bleeding or other significant problems in the days following this procedure please call my officeat [phone] to speak to my nurse, Patt Holly.After hours and evenings please call [phone] andspeak to the GI fellow concrete pump operator. Please tell them that Dr. Nichols did your procedure and that you wereinstructed to have the fellow call me or the physiciancovering for me to discuss the management of your condition.If you have an urgent problem, please go to [facility] emergency room and have the ER doctor call [facility] during the day or [facility] transfer ([phone])center after hours and weekends to arrange admission or transfer to our facility. Electronically signed by Bethanie Nichols MD Bethanie Nichols M.D. 06/02/2024 3:41:49 PM Number of Addenda: 0 Note Initiated On: 06/02/2024 2:59 PM Bethanie Nichols MD ENDOSCOPY PROCEDURES Final Resu lt from Last 3 Months or Most Recently Relevant to Health Maintenance Insurance [facility] Advance Directives For more information, please contact: [phone] * Full Code (Latest Code Status on File) Date Activated Date Inactivated Comments 07/09/2024 6:11 PM 07/12/2024 6:13 PM * Full Code Date Activated Date Inactivated Comments 06/02/2024 1:43 PM 06/02/2024 8:45 PM * Full Code Date Activated Date Inactivated Comments 02/10/2024 9:38 AM 02/11/2024 5:08 AM Care Teams Manager Benefit Relationship Specialty Start Date End Date Ortega Reeves MD PCP - General Internal Medicine 10/07/23
--- OUTSIDE RECORDS SUMMARY | 2024-09-16 14:06 | XMS_ITS | Clinical Summary ---
Author Organization [facility] Address [address] [place] [address] Care Team Providers Care Radiology Technologist Name Role Phone Ortega Reeves MD Primary Care Provider Source Comments [facility],non-owned Affiliates and Associated Physician Practices is amultiple site organization consisting of ambulatory clinics and hospital sitesin [place], [place], [place] and [place]. This disclosure is being madepursuant to the Care Everywhere program and may not contain all information available regarding this patient. Last updated 17.[facility] Allergies Active Allergy Reactions Criticality Noted Date Comments Sulfa Drugs Rash Medium 11/09/2020 Medications * Be aware that medications may not be up to date on this document. Alwaysverify current medications with the patient. DULoxetine (CYMBALTA) 20 MG capsule Take 20 mg by mouth as directed 11/07/2020 Active levothyroxine (SYNTHROID) 125 MCG tablet Take 125 mcg by mouth as directed 11/07/2020 Active Active Problems Problem Noted Date Diagnosed Date Endometrial adenocarcinoma 01/01/2021 S/P total hysterectomy and B SO (bilateral salpingo-oophorectomy) 01/01/2021 Social History Tobacco Use Types Packs/Day Years Used Date Smoking Tobacco: Former Smokeless Tobacco: Never Comments:STOP 3 YEARS Alcohol Use Standard Drinks/Week Comments Never 0 (1 standard drink = 0.6 oz pur e alcohol) Comments No Sex and Gender Information Value Date Recorded Sex Assigned at Not on file Legal Sex Female 2:23 PM CDT Gender Identity Not on file Sexual Orientation Not on file Last Filed Vital Signs Vital Sign Reading Time Taken Comments Blood Pressure 118/80 01/01/2021 2:25 PM CDT Pulse - - Temperature - - Respiratory Rate - - Oxygen Saturation - - Inhaled Oxygen Concentration - - Weight 105.2 kg (232 lb) 01/01/2021 2:25 PM CDT Height 152.4 cm (5') 01/01/2021 2:25 PM CDT Body Mass Index 45.31 01/01/2021 2:25 PM CDT Plan of Treatment Health Maintenance Due Date Last Done Comments COLOGUARD (AGES 45-75) - COL ON CA SCREENING 1965 COLON MONITORING 1965 COLONOSCOPY - COLON CA SCREENING 1965 CT COLONOGRAPHY - COLON CA SCREENING 1965 Colorectal Cancer Screening 1965 FIT - COLON CA SCREENING 1965 FLEX SIG - COLON CA SCREENING 1965 LIPID TESTING 1965 MAMMOGRAM 1965 HIV SCREENING 12/07/1978 HEPATITIS C SCREENING 12/03/1981 DTAP/TDAP/TD VACCINES (1 - Tdap) 12/07/1982 PNEUMOCOCCAL VACCINE 50+ (1 of 1 - PCV) 12/07/2013 ZOSTER VACCINE (1 of 2) 12/07/2013 SCREENING FOR DIABETES 11/09/2020 COVID-19 VACCINE ( - 2023-2 5 season) 2023 Respiratory Syncytial Virus (RSV) Vaccine Pt: or over 60 yrs (1 - Risk 60-74 years 1-dose series) 2023 DEPRESSION SCREENING 04/07/2024 INFLUENZA VACCINE (Season Ended) 2024 HEPATITIS B VACCINE Aged Out No longe r eligible based on patient's age to complete this topic HIB VACCINE Aged Out No longer eligi ble based on patient's age to complete this topic HPV VACCINE Aged Out No longer eligi ble based on patient's age to complete this topic MENINGOCOCCAL (Group B) VACC INE SHARED DECISION-MAKING Aged Out No longer eligibl e based on patient's age to complete this topic MENINGOCOCCAL GROUPS A/C/Y/W VACCINE Aged Out No longer eligible b ased on patient's age to complete this topic Insurance [facility] * Guarantor: CHERYL ASENCIO Account Type Relation to Patient Date of Phone Billing Address Personal/Family [address] [place] [address] [facility] SELF PAY NO INSURANCE Member Subscriber Plan / Payer (Ef fective for All Dates) Name:Cheryl Asencio Member ID:Not on file Relation to Subscriber:Not on file Name:CHERYL ASENCIO Subscriber ID:Not on file Address: [address] [place] [address] Payer ID:Not on file Group ID:Not on file Type:Self Pay Address: [place], [place] * Guarantor: CHERYL ASENCIO Account Type Relation to Patient Date of Phone Billing Address Personal/Family [address] [place] [address] [facility] SELF PAY NO INSURANCE Member Subscriber Plan / Payer (Ef fective for All Dates) Name:Cheryl Asencio Member ID:Not on file Relation to Subscriber:Not on file Name:CHERYL ASENCIO Subscriber ID:Not on file Address: [address] [place] [address] Payer ID:Not on file Group ID:Not on file Type:Self Pay Address: [place], [place] * Guarantor: CHERYL ASENCIO Account Type Relation to Patient Date of Phone Billing Address Personal/Family [address] [place] [address] [facility] SELF PAY NO INSURANCE Member Subscriber Plan / Payer (Ef fective for All Dates) Name:Cheryl Asencio Member ID:Not on file Relation to Subscriber:Not on file Name:CHERYL ASENCIO Subscriber ID:Not on file Address: [address] [place] [address] Payer ID:Not on file Group ID:Not on file Type:Self Pay Address: [place], [place] Care Teams Radiology Technologist Relationship Specialty Start Date End Date Ortega Reeves MD [address] [place] [address] PCP - General 11/09/20
--- OUTSIDE RECORDS SUMMARY | 2024-09-16 14:06 | XMS_ITS ---
Author Organization [facility] Address [address] [place] [address] Care Team Providers Care Noteman Name Role Phone Ortega Reeves MD Primary Care Provider [phone] Active Problems Patient Care Coordination No te Formatting of this note migh t be different from the original. 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 AI [...] Plan: - Continue B6 - Did not package pick up gabapentin rx from last visit. Discussed 100 mg TID PRN on days that neuropathy is flaring. Counseled on drowsiness side effect. Pt will package pick up from pharmacy. Endometrial cancer 11/05/2023 Overview (08/18/2024): [...] abdomen to further assess abdominal wall mass Current Treatment and Therapy Plans IV Maintenance Therapy Plan & Venous Sampling from IVAD* Plan Start Date: 02/16/2024 Plan Provider:Jaqueline Maguire MD Linked Problems Endometrial cancer (HCC) Treatment Medications No medications scheduled. Past Treatment and Therapy Plans Oncology Chemotherapy Treatment Plan Name Start Date Discontinue Date Treatment Medications Discontinue Reason Plan Provider Cycles PACLItaxel / CARBOplatin (AUC 5) 21 Day Cycles - CLOTH SHEARING SUPERVISOR 02/16/20 24 08/18/2024 CARBOplatin (PARAPLATIN) IVPB in 250 mL (by AUC: GOG)PACLItaxel (TAXOL) IVPB in 500 mL Therapy Complete Jaqueline Maguire MD 6 of 6 cycles started Lifetime Dose Tracking * Chemical Lifetime Dose Automatic Entry Manual Entr y Fluoro Time 0.9 minutes 0.9 minutes 0 minutes Air kerma at the reference point (Ka,r) 6 mGy 6 mGy 0 mGy DLP 6,208 mGycm 6,208 mGycm 0 mGycm
--- OUTSIDE RECORDS SUMMARY | 2024-09-16 14:06 | XMS_ITS | Referral Summary ---
Author Organization [facility] Address [address] [place] [address] [place] [address] Care Team Providers Care Relocation Counselor Name Role Phone Ortega Reeves MD Primary Care Provider [phone] Encounters Date Type Department Care Team Description 09/16/[address] [facility] Obstetrics and Gynecology [address] [place] [address] Advanced Medicine 13th [place] [address] [place] [address] Magalys Fuentes, RN Test Results 09/15/2024 Telephone [facility] Clinic [address] [place] [address] Outpatient [facility] 3rd Floor [address] [place] [phone] Ivonne Meehan LPN 09/10/2024 Telephone [facility] Clinic [address] [place] [address] Outpatient [facility] 3rd Floor [address] [place] [phone] Kassandra Mckinney, JADEN 09/10/2024 Telephone [facility]s [facility]ne[facility] Clinic [address] [place] [address] Outpatient Health 3rd Floor [address] [place] [address] Clarke Bravo 09/02/2024 2:26 PM CDT - 09/02/2024 11:59 PM CDT Hospital Encounter [facility] Radiology [facility] [address] [place] [address] Endometrial cancer (HCC); Abdominal mass, unspecified abdominal location Discharge Disposition: Discharge to home or self care 08/19/2024 Telephone [facility] Radiology 1 [facility] [place] [address] Gina Trivedi RN 08/19/2024 Telephone [facility]stetrics [facility] Gynecology Clinic [address] [place] [address] Health 3rd Floor [address] [place] [address] Aiden Shaneika 08/18/2024 Orders Only [facility] Health Tumor Clinic [address] [place] [address] Justin Felix MD PhD 08/18/[address] [facility] Obstetrics and Gynecology [address] [facility] Advanced Medicine 13th [place] [address] [place] [address] Lennie Art, RN 08/18/[address] [facility] Obstetrics and Gynecology [address] [facility] Advanced Medicine 13th [place] [address] Lennie Art RN 08/18/[address] [facility] Obstetrics and Gynecology [address] [facility] Advanced Medicine 13th [place] [address] [place] [address] Lennie Art RN 08/18/2024 1:30 PM CDT Office Visit [facility] Health Tumor Clinic [address] [place] [address] Endometrial cancer (HCC) (Primary Dx); Abdominal mass, unspecified abdominal location 08/18/2024 11:02 AM CDT - 08/18/2024 11:59 PM CDT Hospital Encounter [facility] [address] [place] [address] Endometrial cancer (HCC) Discharge Disposition: Discharge to home or self care 07/28/2024 1:15 PM CDT Office Visit [facility] Outpatient Health Tumor Clinic [address] [place] [address] Endometrial cancer (HCC) (Primary Dx) 07/20/2024 3:15 PM CDT Office Visit [facility] Advanced Medicine ([facility] Minimally Invasive Surgery [address] [place] [address] 12th Floor, [place] [address] Walker Egan MD Incisional hernia, without obstruction or gangrene 07/14/[address] [facility] Obstetrics and Gynecology [address] [facility] 13th [place] [address] [place] [address] Lennie Art RN Endometrial cancer (HCC) (Primary Dx); Low oxygen saturation 07/09/2024 10:08 AM CDT - 07/12/2024 2:08 PM CDT Hospital Encounter [address] [address] Marcel Wilson MD Acute postoperative abdominal pain (Primary Dx); Endometrial cancer (HCC); Obstructive sleep apnea Discharge Disposition: Discharge to home or self care 07/09/2024 12:15 PM CDT - 07/09/2024 5:15 PM CDT Surgery [facility] Operating Room [address] [place] [address] Marcel Wilson MD EXCISION OF ABDOMINAL [place] MASS, 07/09/2024 12:11 PM CDT Anesthesia Event [facility] Operating Room 1 [place] [address] Kindra Hernandez MD Doshi, Sonal Raj, NP 07/08/[address] [facility] Obstetrics and Gynecology [address] [facility] 13th [place] [address] [place] [address] Marcel Wilson MD Surgery Confirmation 07/02/2024 Documentation [facility] Surgeon 1 [place] [address] Walker Egan MD 06/28/2024 2:00 PM CDT Pre-Admission Testing [facility] Preoperative [facility] ([facility]) [address] [place] [address] Preoperative testing (Primary Dx) from Last 3 Months Allergies Active Allergy Reactions Criticality Noted Date [...] Plan: - Continue B6 - Did not pick pack worker gabapentin rx from last visit. Discussed 100 mg TID PRN on days that neuropathy is flaring. Counseled on drowsiness side effect. Pt will pick pack worker from pharmacy. 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 Gender Identity Not on file Sexual Orientation [...] Associated Diagnoses Date/Ti me COLONOSCOPY Rectal bleeding Medical Devices Implanted Type Area Special Education Para Professional Device Identifier Shelf Expiration Date Model / Serial / Lot Mesh Suture Inc Mesh Surgical Tissue Synthetic Duramesh 3.9mm Polypropylene Msi-300 - [id number] Implanted:Qty: 1 on 07/09/2024 by Walker Egan MD at [facility] Mesh [employer] [id number] 01/07/2027 MSI-300 / / [id number] Mesh [employer] Mesh Surgical Tissue Synthetic Duramesh 3.9mm Polypropylene Msi-300 - [id number] Implanted:Qty: 1 on 07/09/2024 by Walker Egan MD at [facility] Mesh [employer] [id number] 01/07/2027 MSI-300 / / [id number] Mesh [employer] Mesh Surgical Tissue Synthetic Duramesh 3.9mm Polypropylene Msi-300 - [id number] Implanted:Qty: 1 on 07/09/2024 by Walker Egan MD at [facility] Mesh N/A: Abdomen [employer] [id number] 01/07/2027 MSI-300 / / [id number] [employer] Xcela Power Port 8fr [id number] - [id number] Implanted:Qty: 1 on 02/10/2024 by Mariann Nelson PA at [facility] [employer] 08/09/2028 [id number] / / [id number] Procedures Procedure Name Priority Date/Time Associated Diagnosis [...] WITHOUT DIFFERENTIAL Routine 07/09/2024 8:30 PM CDT SD AN PROCEDURE PLACEHOLDER Routine 07/09/2024 1:11 PM CDT SD AN ELECTIVE ENDOTRACHEAL AIRWAY Routine 07/09/2024 1:11 PM CDT SURGICAL PATHOLOGY Routine 07/09/2024 1: 10 PM CDT Endometrial cancer (HCC) REPAIR INCISIONAL HERNIA 07/09/2024 12:18 PM CDT Endometrial cancer (HCC) Case Notes 07/02- Placed case in the depot office is adding a panel per Christina via staff msg (EF) 06/15- missing dpc email sent to resource nurse (EF) Special Needs Mesh EXCISION CYST/LESION/MASS - ABDOMEN 07/09/2024 12:18 PM CDT Endometrial cancer (HCC) Case Notes 07/02- Placed case in the depot office is adding a panel per Christina via staff msg (EF) 06/15- missing dpc email sent to resource nurse (EF) Special Needs Mesh TYPE AND SCREEN 14 DAY Routine 06/28/2024 3:02 PM CDT Preoperative testing COLONOSCOPY 06/02/2024 2:59 PM PORTAINER OPERATOR from Last 3 Months or Most Recently [...] participated in the procedure. Dr. Raul Iqbal (vice president sales and marketing) personally participated in sonographic imaging of this [...] participated in the procedure. Dr. Raul Iqbal (vice president sales and marketing) personally participated in sonographic imaging of this patient. IMPRESSION: 1. Successful ultrasound-guided fluid aspiration of right lower anterior abdominal wall complex fluid collection. 2. Please see separate laboratory results for final interpretation. The radiology attending physician has personally reviewed this study, and had reviewed and/or edited this written report and agrees with it. Electronically signed by: HARMONY Mcclure us Melina Maldonaod MD IM US PROCEDURES Final Result * Cytology (09/02/2024 3:03 PM CDT) Fluid (Fluid, NOS) 09/02/2024 3:03 PM CDT Narrative PATHOLOGY [facility] - 09/06/2024 10:45 AM CDT EPIC results best viewed via link to PDF [facility] [place] [address] Note to Patients: This report may contain [...] Gender: F : 1965 (Age: 58) Address: [address] [place] [address] Hospital #: [id number] Taken:09/02/2024 Received:09/02/2024 Reported: 09/06/2024 Patient Type: [facility] Ancillary Service: UNKNOWN Location: Physician(s): Melina Maldonado [...] Out By Renetta Roque M.D. 09/06/2024 10:45:[address] (ASCP) Gross Description A. RLQ abdominal wall [...] Surgical Pathology and Flow Cytometry Departments at [facility] as part of an ongoing quality control supervisor program and in compliance with federally mandated [...] Surgical Pathology and Flow Cytometry Departments of [facility]. It has not been cleared or approved by the U. S. Food and Drug Administration. Melina Maldonado MD LAB CYTOLOGY ORDERABLES Final Result PATHOLOGY [facility] 3rd Floor [place], [place] [phone] * CT Chest Abdomen Pelvis W Contrast [...] PM CDT 07/11/2024 9:54 PM CDT us Marcel Wilson MD LAB BLOOD ORDERABLES Fin al Result [facility] Department [place] [address] * (ABNORMAL) CBC without differential (07/11/2024 9:16 PM CDT) WBC 6.23 3.80 - 9.90 K/cumm Hgb 10.4(L) 11.9 - 15.5 g/dL [facility] Hct 32.5(L) 35.6 - 45.5 % [facility] Plt 274 150 - 400 K/cumm [facility] MPV 9.1 9.1 - 12.3 fL [facility] RBC 2.96(L) 3.90 - 5.20 M/cumm [facility] MCV 109.8(H) 81.3 - 96.4 fL [facility] MCH 35.1(H) 27.1 - 33.3 pg [facility] MCHC 32.0(L) 32.3 - 35.7 g/dL [facility] RDW CV 14.8 11.1 - 14.9 % [facility] RDW SD 59.5(H) 35.7 - 48.1 fL [facility] NRBC abs 0.00 0.00 - 0.01 K/cumm [facility] Blood 07/11/2024 9:16 PM CDT 07/11/2024 9:54 PM CDT [facility] LAB BLOOD ORDERABLES Fin al Result Performing Organization Address [facility] de Phone Number [facility] [employer] [place] [address] * Phosphorus (07/11/2024 9:16 PM CDT) Pathologist [facility] Phosphorus, pl 2.4 2.3 - 4.5 mg/dL Blood 07/11/2024 9:16 PM CDT 07/11/2024 9:54 PM CDT [facility] Jim Wilson MD LAB BLOOD ORDERABLES Fin al Result Performing Organization Address [facility] Co de Phone Number [facility] [place] [address] * Magnesium (07/11/2024 9:16 PM CDT) Magnesium 2.0 1.4 - 2.5 mg/dL Blood 07/11/2024 9:16 PM CDT 07/11/2024 9:54 PM CDT [facility] Jim Wilson MD LAB BLOOD ORDERABLES Fin al Result Performing Organization Address City/[facility] Co de Phone Number [facility] Department [place] [address] * Basic metabolic panel (07/11/2024 9:16 PM CDT) Pathologist [facility] Sodium 142 135 - 145 mmol/L Potassium, pl 4.1 3.3 - 4.9 mmol/L [facility] Chloride 102 97 - 110 mmol/L [facility] CO2 32 22 - 32 mmol/L [facility] Anion gap 8 2 - 15 mmol/L [facility] BUN 13 6 - 25 mg/dL [facility] Creatinine 0.87 0.60 - 1.10 mg/dL [facility] Glucose 118 70 - 199 mg/dL [facility] Comment: Interpretive Data Fasting glucose >/= [...] 2022. Calcium 8.6 8.5 - 10.3 mg/dL [facility] Blood 07/11/2024 9:16 PM CDT 07/11/2024 9:54 PM CDT [facility] Jim Wilson MD LAB BLOOD ORDERABLES Fin al Result Performing Organization Address [facility]/ZIP Co de Phone Number [facility] Department [place] [address] * eGFR (07/11/2024 2:58 PM CDT) eGFR [...] 2:58 PM CDT 07/11/2024 3:44 PM CDT Premri Jim Wilson MD LAB BLOOD ORDERABLES Fin al Result [facility] Department [place] [address] * Basic metabolic panel (07/11/2024 2:58 PM CDT) Sodium 141 135 - 145 mmol/L Potassium, pl 4.6 3.3 - 4.9 mmol/L [facility] Chloride 101 97 - 110 mmol/L [facility] CO2 32 22 - 32 mmol/L [facility] Anion gap 8 2 - 15 mmol/L [facility] BUN 16 6 - 25 mg/dL [facility] Creatinine 0.94 0.60 - 1.10 mg/dL [facility] Glucose 127 70 - 199 mg/dL [facility] Comment: Interpretive Data Fasting glucose >/= [...] 2022. Calcium 9.1 8.5 - 10.3 mg/dL [facility] Blood 07/11/2024 2:58 PM CDT 07/11/2024 3:44 PM CDT us Premal Jim Wilson MD LAB BLOOD ORDERABLES Fin al Result [facility] Department [place] [address] * XR Chest 1 View (07/11/2024 2:40 [...] it. Electronically signed by: Alessandro Ruiz M.D. Marcel Wilson MD IMG XR PROCEDURES Final Result * Sodium, urine, random (07/11/2024 6:25 AM CDT) Sodium, ur 21 mmol/L Comment: Interpretive Data No reference range established. Current interpretive data was last revised 2018. Urine 07/11/2024 6:25 AM CDT 07/11/2024 6:48 AM CDT Marcel Wilson MD LAB URINE ORDERABLES Fin al Result Performing Organization Address [facility] Co de Phone Number [facility] [employer] [address] * Creatinine, urine, random (07/11/2024 6:25 AM CDT) Creatinine Ur 185.1 mg/dL Comment: Interpretive Data No reference range established. Current interpretive data was last revised 2018. Urine 07/11/2024 6:25 AM CDT 07/11/2024 6:48 AM CDT [facility] MD LAB URINE ORDERABLES Fin al Result Performing Organization Address [facility] Co de Phone Number [facility] [place] [address] * (ABNORMAL) eGFR (07/10/2024 8:11 PM CDT) [facility] eGFR 54(L) >=60 mL/min/1. 73 m2 Comment: [...] 8:11 PM CDT 07/10/2024 8:55 PM CDT us Premal Jim Wilson MD LAB BLOOD ORDERABLES Fin al Result [facility] Department [place] [address] * (ABNORMAL) CBC without differential (07/10/2024 8:11 PM CDT) [facility] WBC 5.62 3.80 - 9.90 K/cumm Hgb 10.6(L) 11.9 - 15.5 g/dL [facility] Hct 33.1(L) 35.6 - 45.5 % [facility] Plt 282 150 - 400 K/cumm [facility] MPV 9.1 9.1 - 12.3 fL [facility] RBC 2.93(L) 3.90 - 5.20 M/cumm [facility] MCV 113.0(H) 81.3 - 96.4 fL [facility] MCH 36.2(H) 27.1 - 33.3 pg [facility] MCHC 32.0(L) 32.3 - 35.7 g/dL [facility] RDW CV 15.2(H) 11.1 - 14.9 % [facility] RDW SD 63.5(H) 35.7 - 48.1 fL [facility] NRBC abs 0.00 0.00 - 0.01 K/cumm [facility] Blood 07/10/2024 8:11 PM CDT 07/10/2024 8:55 PM CDT Marcel Wilson MD LAB BLOOD ORDERABLES Fin al Result Performing Organization Address [facility] Co de Phone Number [facility] [place] [place] [address] * Phosphorus (07/10/2024 8:11 PM CDT) Phosphorus, pl 3.6 2.3 - 4.5 mg/dL Blood 07/10/2024 8:11 PM CDT 07/10/2024 8:55 PM CDT Marcel Wilson MD LAB BLOOD ORDERABLES Fin al Result Performing Organization Address [facility] Co de Phone Number [facility] [place] [address] * Magnesium (07/10/2024 8:11 PM CDT) Magnesium 2.3 1.4 - 2.5 mg/dL Blood 07/10/2024 8:11 PM CDT 07/10/2024 8:55 PM CDT Marcel Wilson MD LAB BLOOD ORDERABLES Fin al Result Performing Organization Address [facility] Co de Phone Number [facility] [place] [address] * (ABNORMAL) Basic metabolic panel (07/10/2024 8:11 PM CDT) Sodium 142 135 - 145 mmol/L Potassium, pl 4.0 3.3 - 4.9 mmol/L [facility] Chloride 104 97 - 110 mmol/L [facility] CO2 29 22 - 32 mmol/L [facility] Anion gap 9 2 - 15 mmol/L [facility] BUN 23 6 - 25 mg/dL [facility] Creatinine 1.16(H) 0.60 - 1.10 mg/dL [facility] Glucose 125 70 - 199 mg/dL [facility] Comment: Interpretive Data Fasting glucose >/= [...] 2022. Calcium 8.7 8.5 - 10.3 mg/dL [facility] Blood 07/10/2024 8:11 PM CDT 07/10/2024 8:55 PM CDT us Premal Jim Wilson MD LAB BLOOD ORDERABLES Fin al Result [facility] Department [place] [address] * eGFR (07/09/2024 8:30 PM CDT) Pathologist [facility] eGFR 80 >=60 mL/min/1. 73 m2 Comment: [...] 8:30 PM CDT 07/09/2024 9:18 PM CDT us Premri Jim Wilson MD LAB BLOOD ORDERABLES Fin al Result [facility] Department [place] [address] * (ABNORMAL) CBC without differential (07/09/2024 8:30 PM CDT) WBC 11.46(H) 3.80 - 9.90 K/cumm Hgb 11.7(L) 11.9 - 15.5 g/dL [facility] Hct 37.6 35.6 - 45.5 % [facility] Plt 296 150 - 400 K/cumm [facility] MPV 8.9(L) 9.1 - 12.3 fL [facility] RBC 3.33(L) 3.90 - 5.20 M/cumm [facility] MCV 112.9(H) 81.3 - 96.4 fL [facility] MCH 35.1(H) 27.1 - 33.3 pg [facility] MCHC 31.1(L) 32.3 - 35.7 g/dL [facility] RDW CV 15.0(H) 11.1 - 14.9 % [facility] RDW SD 62.8(H) 35.7 - 48.1 fL [facility] NRBC abs 0.00 0.00 - 0.01 K/cumm [facility] Blood 07/09/2024 8:30 PM CDT 07/09/2024 9:19 PM CDT Marcel Wilson MD LAB BLOOD ORDERABLES Fin al Result Performing Organization Address [facility] Co de Phone Number [facility] [place] [address] * Phosphorus (07/09/2024 8:30 PM CDT) [facility] Phosphorus, pl 4.5 2.3 - 4.5 mg/dL Blood 07/09/2024 8:30 PM CDT 07/09/2024 9:18 PM CDT Marcel Wilson MD LAB BLOOD ORDERABLES Fin al Result Performing Organization Address [facility] de Phone Number [facility] [employer] [address] * Magnesium (07/09/2024 8:30 PM CDT) [facility] Magnesium 2.1 1.4 - 2.5 mg/dL Blood 07/09/2024 8:30 PM CDT 07/09/2024 9:18 PM CDT Marcel Wilson MD LAB BLOOD ORDERABLES Fin al Result Performing Organization Address [facility] [place] [address] * Basic metabolic panel (07/09/2024 8:30 PM CDT) [facility] Sodium 143 135 - 145 mmol/L Potassium, pl 4.9 3.3 - 4.9 mmol/L [facility] Chloride 104 97 - 110 mmol/L [facility] CO2 30 22 - 32 mmol/L [facility] Anion gap 9 2 - 15 mmol/L [facility] BUN 13 6 - 25 mg/dL [facility] Creatinine 0.84 0.60 - 1.10 mg/dL [facility] Glucose 147 70 - 199 mg/dL [facility] Comment: Interpretive Data Fasting glucose >/= [...] 2022. Calcium 8.8 8.5 - 10.3 mg/dL [facility] Blood 07/09/2024 8:30 PM CDT 07/09/2024 9:18 PM CDT [facility] Jim Wilson MD LAB BLOOD ORDERABLES Fin al Result Performing Organization Address City/State/[facility] Co de Phone Number [facility] Department [place] [address] * SD AN ELECTIVE ENDOTRACHEAL AIRWAY, SD AN PROCEDURE PLACEHOLDER (07/09/2024 1:11 PM CDT) [...] n) 07/09/2024 1:10 PM CDT Narrative PATHOLOGY [facility] - 07/16/2024 5:01 PM CDT EPIC results best viewed via link to PDF [facility] [place] [address] Note to Patients: This report may contain [...] Gender: F : 1965 (Age: 58) Address: [address] [place] [address] Hospital #: [id number] Taken:07/09/2024 Received:07/09/2024 Reported: 07/16/2024 Patient Type: [facility] Inpatient Service: Gynecology Location: [place] [address] Physician(s): Lee Castillo M.D. 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 Guerrero for quality control supervisor. Scanned slides from [phone] have also been reviewed. Galina Hernandez M.D. History: The patient is a 58-year-old woman with a history of endometrial cancer status post total abdominal hysterectomy and bilateral salpingo-oophorectomy in 2020, with biopsy proven abdominal recurrence ([id number]) status post chemotherapy. Operative procedure: Excision of [...] 0.3 cm of the closest peripheral margin. Equipment Service Lead sections are submitted: A1 = mass with closest approach to apparent superficial; A2 = mass with closest approach to apparent deep; A3 = sales representative rural power mass closest approach to peripheral margin. Jar 2. sxv/07/12/2024 10:24 PA(s): Brijesh Samuel, MS, PA ([facility])CM By this signature, I attest that the above diagnosis is based upon my personal examination of the slides(and/or other material). Addenda/Procedures The performance characteristics of some immunohistochemical stains, fluorescence in-situ hybridization tests and immunophenotyping by flow cytometry cited in this report (if any) were determined by the Surgical Pathology and Flow Cytometry Departments at [facility] as part of an ongoing quality control supervisor program and in compliance with federally mandated [...] Surgical Pathology and Flow Cytometry Departments of [facility]. It has not been cleared or approved by the U. S. Food and Drug Administration. IMAGES AND SCANNED DOCUMENTS, IF INCLUDED, ONLY VIEWABLE IN PDF VERSION OF REPORT us Premri Jim Wilson MD LAB PATHOLOGY ORDERABLES Final Result PATHOLOGY [facility] 3rd Floor [place], [place] [phone] * TYPE AND SCREEN 14 DAY (06/28/2024 3:02 PM CDT) ABO Rh A Positive Afshin, indirect Negative [facility] Blood 06/28/2024 3:02 PM CDT 06/28/2024 3:43 PM CDT Narrative [facility] - 06/28/2024 5:02 PM CDT Is this test being ordered in advance for a procedure?->Yes Expected date of procedure:->07/09/24 Has the patient been transfused in the past 3 months?->No Has the patient been in the past 3 months?->No us Yomi Werner MD LAB BLOOD BANK TEST O RDERABLES Final Result [facility] Department [place] [address] * Colonoscopy (06/02/2024 2:59 PM PORTAINER OPERATOR) Anatomical Region Laterality Modality Other Narrative Procedure Note Bethanie Nichols MD - 06/02/2024 2:59 PM CST ENDOSCOPY LAB Patient Name: Cheryl Asencio Procedure Date: 06/02/2024 2:59 PM Date of : 1965 Admit Type: Outpatient Age: 58 Gender: Female Attending MD: Bethanie Nichols M.D. Room: [facility] ENDOSCOPY ROOM 05 Note Status: Finalized [...] The scope was passed under direct vision.The [id number] was introduced through the anusand advanced to [...] results. - [facility] depending on overall [facility] status. - In the unusual situation that you developabdominal pain, bleeding or other significant problems in the days following this procedure please call my officeat [phone] to speak to my nurse, Patt Holly.After hours and evenings please call [phone] andspeak to the GI fellow application architect. Please tell them that Dr. Nichols did your procedure and that you wereinstructed to have the fellow call me or the physiciancovering for me to discuss the management of your condition.If you have an urgent problem, please go to [facility] emergency room and [facility] or [facility] transfer ([phone])center after hours and weekends to arrange admission or transfer to our facility. Electronically signed by Bethanie Nichols MD Bethanie Nichols M.D. 06/02/2024 3:41:49 PM Number of Addenda: 0 Note Initiated On: 06/02/2024 2:59 PM Bethanie Nichols MD ENDOSCOPY PROCEDURES Final Resu lt from Last 3 Months or Most Recently Relevant to Health Maintenance Insurance Advance Directives For more information, please contact: [phone] * Full Code (Latest Code Status on File) Date Activated Date Inactivated Comments 07/09/2024 6:11 PM 07/12/2024 6:13 PM * Full Code Date Activated Date Inactivated Comments 06/02/2024 1:43 PM 06/02/2024 8:45 PM * Full Code Date Activated Date Inactivated Comments 02/10/2024 9:38 AM 02/11/2024 5:08 AM Care Teams Relocation Counselor Relationship Specialty Start Date End Date Ortega Reeves MD PCP - General Internal Medicine 10/07/23
--- OUTSIDE RECORDS SUMMARY | 2024-09-16 14:06 | XMS_ITS | Encounter Summary ---
Author Organization [facility] Address [address] [place] [address] Phone Care Team Providers Care Business Applications Manager Name Role Phone Ortega Reeves MD Primary Care Provider [phone] Reason for Visit * Reason Onset Date Comments Test Results 09/16/2024 Encounter Details Date Type Department Care Team (Late st Contact Info) Description 09/16/2024 Telephone [facility] Obstetrics and Gynecology [address] [facility] [address] [place] [address] [place] [address] Magalys Fuentes RN Test Results Social History Tobacco Use Types Packs/Day Years Used Date Smoking Tobacco: Former Cigarettes Smokeless Tobacco: Never Comments:Quit 2013 2pk/day AUDIT-C Answer Date Recorded [...] on file 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 She called asking for her biopsy results from 09/02/24 and what her plan going forward is. She wants to know if her cancer is gone or still present. She is aware I will get a message to the physician team and we will notify her soon. She voiced understanding and appreciation. documented in this encounter Plan of Treatment Scheduled Procedures Name Priority Associated Diagnoses Date/Ti me COLONOSCOPY Rectal bleeding documented as of this encounter Visit Diagnoses Not on filedocumented in this encounter Care Teams Business Applications Manager Relationship Specialty Start Date End Date Ortega Reeves MD PCP - General Internal Medicine 10/07/23 documented as of this encounter
--- OUTSIDE RECORDS SUMMARY | 2024-09-16 14:06 | XMS_ITS | Encounter Summary ---
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 documented in this encounter Plan of Treatment Scheduled Procedures Name Priority Associated Diagnoses Date/Ti me COLONOSCOPY Rectal bleeding documented as of this encounter Visit Diagnoses Not on filedocumented in this encounter Care Teams Strategic Sourcing Consultant Relationship Specialty Start Date End Date Ortega Reeves MD PCP - General Internal Medicine 10/07/23 documented as of this encounter
== END 2024-09-16 13:27 | disposition home or self-care (01) ==
LOC: CHSIMG 13:27
PROVIDERS: PCP Internal Medicine; Visit Provider Internal Medicine
DX: Z12.31 Encounter for screening mammogram for malignant neoplasm of breast (principal)
CPT/HCPCS: 77063; 77067